=== PATIENT | female | born 1965 | race Caucasian/White ===

== ENCOUNTER → 2017-01-19 | Outpatient (CLI) | payer OTHER ==
[~2017-01-19] MED LIST: ESTR3TA PO; FURO20TA2 PO; HYDR25TAB PO; NAPR250T4 PO
[2017-01-19 11:14] LABS: MEAN CORPUSCULAR HEMOGLOBIN 27.9 pg (27.0-33.0); MEAN CORPUSCULAR HGB CONC 31.9 g/dl (32.0-36.5); MEAN CORPUSCULAR VOLUME 87.4 fl (80.0-96.0); PLATELET COUNT, AUTOMATED 406 10^3/uL (150-450); RED CELL DISTRIBUTION WIDTH 13.2 % (11.5-14.5); WHITE BLOOD COUNT 9.3 10^3/uL (4.0-10.0)
--- NOTE | 2017-01-19 11:22 | REP ---
Chest two views HISTORY: Arthritis Comparison: None The lungs are clear. The heart is normal in size. The pulmonary vasculature is normal in appearance. The bony structure is intact. IMPRESSION: No acute disease. Signed by Blayne Chi MD 01/19/2017 11:14 A
[2017-01-19 11:24] LABS: INR 1.12
[2017-01-19 11:38] LABS: ALBUMIN 3.7 GM/DL (3.2-5.2); ALBUMIN/GLOBULIN RATIO 1.06 (1.00-1.93); ALKALINE PHOSPHATASE 80 U/L (45-117); ALT/SGPT 16 U/L (12-78); ANION GAP 8 MEQ/L (8-16); AST/SGOT 8 U/L (7-37); BILIRUBIN,TOTAL 0.3 MG/DL (0.2-1.0); BLOOD UREA NITROGEN 20 MG/DL (7-18); CALCIUM LEVEL 9.4 MG/DL (8.5-10.1); CARBON DIOXIDE LEVEL 27 MEQ/L (21-32); CHLORIDE LEVEL 106 MEQ/L (98-107); CREATININE FOR GFR 0.61 MG/DL (0.55-1.02); GLOMERULAR FILTRATION RATE > 60.0 (>51); GLUCOSE, FASTING 90 MG/DL (70-105); POTASSIUM SERUM 4.4 MEQ/L (3.5-5.1); SODIUM LEVEL 141 MEQ/L (136-145); TOTAL PROTEIN 7.2 GM/DL (6.4-8.2)
[2017-01-19 12:08] LABS: ERYTHROCYTE SEDIMENTATION RATE 58 mm/hr (0-30)
--- NOTE | 2017-01-19 14:25 | ECGEPIP ---
Stationary ECG Study [facility] Test Date: 2017-01-19 Pat Name: ISABEL ELMORE Department: Room: - Gender: F Energy Technician: NEIL : 1965 Requested By: Robert Raymond Order Number: [id number] Reading MD: Shandra Walsh Measurements Intervals Powell Rate: 54 P: 8 UT: 149 QRS: 20 QRSD: 93 T: 18 QT: 419 QTc: 399 Interpretive Statements SINUS BRADYCARDIA WITH SINUS ARRHYTHMIA RATE SLOWER IMPROVED T WAVE ABN NEW ST ELEV SUSPECT EARLY REPOLAR CHANGES C/W 02/12/16 Electronically Signed On 01-19-2017 14:25:36 EST by Shandra Walsh
== END ==
LOC: M ADMPAT 09:34
PROVIDERS: ATTEND Orthopaedic Surgery
DX: M17.11 Unilateral primary osteoarthritis, right knee (principal)

== ENCOUNTER 2017-02-02 05:41 | Inpatient (IN) | payer OTHER ==
[2017-01-19 09:48] VITALS: BP 132/84
--- NOTE | 2017-01-30 21:06 | HPE ---
DATE OF PLANNED ADMISSION: 02/02/2017 ATTENDING PHYSICIAN: Robert Raymond MD CHIEF COMPLAINT: Left knee osteoarthritis. HISTORY OF PRESENT ILLNESS: This is a pleasant 51-year-old female with progressively worsening left knee pain and stiffness. She has failed to improve with conservative treatment. She has elected for surgery for her continued symptoms. She has pain with weightbearing activities and her activities of daily living. X-rays of her knee are notable for advanced osteoarthritis of the left knee joint. She has consented for a left total knee arthroplasty by Dr. Robert Raymond. Medical optimization was performed by Dr. Orozco. ALLERGIES: None. CURRENT MEDICATIONS: Naproxen, hydroxyzine, and hydrochlorothiazide. PAST MEDICAL HISTORY: None. PAST SURGICAL HISTORY: Cholecystectomy, hysterectomy, left breast biopsy, left and right knee arthroscopies. SOCIAL HISTORY: The patient works at [employer]. Does not smoke, does not drink. FAMILY HISTORY: Noncontributory. REVIEW OF SYSTEMS: She denies chest pain, heart palpitations, cough, wheezing, difficulty breathing and shortness of breath. She denies nausea, vomiting, diarrhea or constipation. She denies recent upper respiratory infection or urinary tract infection symptoms. She does complain of persistent pain in the left knee with weightbearing activities. PHYSICAL EXAMINATION: General: She is well-nourished, well-developed, in no acute distress, alert female patient. She walks with a moderate limp favoring the left lower extremity. She is not using assistive devices. Vital signs: She is 68 inches tall, weighs 306 pounds with a temperature of 97.6, pulse is 68, respirations are 16, blood pressure 140/100. Neck was supple without adenopathy or jugular venous distension. There were no carotid bruits appreciated upon auscultation. Lungs were clear to auscultation without rales or wheeze throughout. Heart: Regular rate and rhythm. Abdomen: Bowel sounds were present. Extremities: Examination of the knee revealed intact skin. She had decreased range of motion secondary to pain and stiffness. The limb was neurovascularly intact. LABORATORY DATA: EKG showed sinus bradycardia with sinus arrhythmia. Chest x-ray shows no acute cardiopulmonary disease processes. UA showed 5 white blood cells, otherwise within normal limits with a specific gravity of 1.031. Urine culture showed no growth. Nasal and sinus cultures showed normal tee. Glucose 90, BUN 20, creatinine 0.61, sodium 141, potassium 4.4. Protime 14.6, INR 1.12. CBC showed hemoglobin of 11.5 and mean corpuscular hemoglobin concentration of 31.9, otherwise within normal limits. Sedimentation rate was 58. IMPRESSION: Symptomatic osteoarthritis of the left knee joint. PLAN: Consented for a left total knee arthroplasty by Dr. Robert Raymond.
[2017-02-02] VITALS (8 sets, daily range): BP systolic 112–136; BP diastolic 60–76
[~2017-02-02] VITALS: Ht 170.2 cm; Wt 135.3 kg
[2017-02-02] MEDS ORDERED: LR 1,000 ML IV SCH ×3 (06:00→09:30)
[2017-02-02] MEDS ORDERED: MIDAZOLAM INJ 2 MG/2 ML VIAL (J2250) As Ordered ONE ×2 (06:55→07:05)
[2017-02-02] MEDS ORDERED: fentaNYL 100 MCG/2 ML INJECTION (J3010) As Ordered ONE ×2 (06:55→07:05)
[2017-02-02] MEDS ORDERED: PROPOFOL 200 MG/20 ML VIAL As Ordered ONE ×2 (07:05→08:29)
[2017-02-02] MEDS ORDERED: LIDOCAINE 2% INJ 100 MG/5 ML SDV (FOR ANES.) As Ordered ONE (07:05)
[2017-02-02] MEDS ORDERED: ceFAZolin 1GM INJ (J0690 PER 500MG) As Ordered ONE (07:14)
[2017-02-02] MEDS ORDERED: BUPIVACAINE LIPOSOME/PF 1.3% 20 ML VIAL (13.3MG/ML)(EXPAREL) As Ordered ONE (07:21)
[2017-02-02] MEDS ORDERED: dexameTHASONE 10 MG/1 ML VIAL PRES.FREE (J1100) ONE (07:44)
[2017-02-02] MEDS ORDERED: ROPIvacaine 0.5% 30 ML INJECTION (J2795 PER 1MG) ONE (07:44)
[2017-02-02] MEDS ORDERED: LIDOCAINE 1% MDV 20ML VIAL ONE (07:44)
--- NOTE | 2017-02-02 07:53 | HPE ---
DATE: 02/02/2017 Patient seen and examined. She wished to go ahead with a right total knee arthroplasty. She understands the nature of this, the risks of bleeding, infection, damage to nerves, vessels, persistent pain, wear loosening, blood clots, medical problems, among others. She understands that with her morbid obesity. Her risks of complication are substantially higher including infection, deep venous thrombosis (DVT), stiffness, medical problems, among others.
[2017-02-02] MEDS ORDERED: MIDAZOLAM INJ 2 MG/2 ML VIAL (J2250) IV ONE (08:00)
[2017-02-02] MEDS ORDERED: fentaNYL 100 MCG/2 ML INJECTION (J3010) IV ONE (08:00)
[2017-02-02] MEDS ORDERED: TRANEXAMIC ACID 100 MG/ML 10ML VIAL As Ordered ONE (08:03)
[2017-02-02] MEDS ORDERED: EPINEPHrine INJ 1 MG/ML 1ML AMP As Ordered ONE (08:03)
[2017-02-02] MEDS ORDERED: diphenhydrAMINE INJ 50MG/ML VIAL (J1200) IV PRN (09:00)
[2017-02-02] MEDS ORDERED: ONDANSETRON 4MG/2ML VIAL (J2405) IV PRN ×3 (09:00→09:45)
[2017-02-02] MEDS ORDERED: MORPHINE 1MG/ML IN 0.9% NACL 100ML IV BAG IV PRN (09:00)
[2017-02-02] MEDS ORDERED: EPIDURAL/PCA KEYS XX PRN (09:00)
[2017-02-02] MEDS ORDERED: NALOXONE INJ 0.4 MG/1 ML VIAL (J2310) IV PRN (09:00)
[2017-02-02] MEDS ORDERED: NALBUPHINE HCL 10 MG/ML AMP (J2300) IV PRN (09:00)
[2017-02-02] MEDS ORDERED: MORPHINE 1MG/ML IN 0.9% NACL 100ML IV BAG As Ordered ONE (09:06)
[2017-02-02] MEDS: fentaNYL 100 MCG/2 ML INJECTION (J3010) IV PRN ×3 (09:20→09:45)
[2017-02-02] MEDS ORDERED: HYDROmorphone HCL 1 MG/ML SYRINGE (J1170) IV PRN (09:30)
[2017-02-02] MEDS ORDERED: PERCOCET 5MG/325MG TAB PO PRN (09:30)
[2017-02-02] MEDS ORDERED: ACETAMINOPHEN TAB 650MG DOSE (2X325MG) PO PRN (10:00)
[2017-02-02] MEDS: LR 1,000 ML IV SCH ×2 (10:00→23:20)
[2017-02-02] MEDS ORDERED: FLEET ENEMA PR PRN (10:00)
--- NOTE | 2017-02-02 16:35 | RO ---
DATE OF PROCEDURE: 02/02/2017 PREOPERATIVE DIAGNOSIS: Right knee osteoarthritis. POSTOPERATIVE DIAGNOSIS: Right knee osteoarthritis. PROCEDURE: Right total knee arthroplasty using a PFC rotating platform posterior stabilized size 4 narrow femur, size 3 tibia, 10 polyethylene and a 35 patellar button. SURGEON: Dr. Robert Raymond DIRECTORY CARRIER: WILLIAMS Coates ANESTHESIA: Spinal. ESTIMATED BLOOD LOSS: Less than 50. COMPLICATIONS: None. INDICATIONS: This is a 51-year-old, morbidly obese woman with severe arthritis. Her body mass index (BMI) is well over 40. She had failed conservative management and wished to go ahead with surgical treatment. She understood the nature of the procedure, the risks of bleeding, infection, damage to nerves, vessels, persistent pain, wear loosening, blood clots, medical problems, , among others. A preoperative clearance was obtained. DESCRIPTION OF PROCEDURE: The patient was taken to the operating room and placed in supine position after spinal anesthesia was induced. Her right knee was prepped and draped in the usual sterile fashion. She had a slight flexion contracture noted. Time-out was performed. I then created a longitudinal incision over the antrum aspect of the knee and sharp dissection was carried down through subcutaneous tissue. Controlled hemostasis with a cautery. Then, did a medial parapatellar arthrotomy, everted the patella, flexed the knee up. Used a canal initiating reamer on the femoral side, followed by the intramedullary guide set at 5 and 10. This was pinned in place by the commercial real estate assistant. I dialed back 2 more mm of cut and a distal femoral cut was made protecting soft tissues. I sized the femur to be a 4. It looked like a 4 narrow. Pin holes were placed in the end of the femur with the external rotation guide and this 4-in-1 cutting block was secured. Remaining four cuts were made. I then directed our attention to the tibia and the tibial alignment guide was placed in the appropriate amount of valgus and posterior slope. This was pinned in place and the appropriate amount of bone was removed, approximately 10 from the high side. The zero degree cutting block was used with anticipation of using a posterior stabilized knee. I then prepared the box cut. The size 4 box cutting guide was placed. The remaining three cuts were made and the tibial tray was placed. Size 3 fit appropriately. This was pinned in place, drilled, broached, etc.. The trial components were placed. I had used a spacer block and the size 10 seemed to be appropriate in flexion/extension. I also removed osteophytes from the posterior aspect of the femur and some soft tissue from either side of the knee. Controlled hemostasis with a cautery. The trial components were then inserted, and I put the knee through a range of motion. Excellent alignment and stability were noted. I then freehand cut the patella removing about 7 mm of bone. Sized to be a 35. This was drilled. I then removed the trial components, irrigated copiously. The commercial real estate assistant prepared the bone cement in the modern technique. The bony surfaces were dried. I cemented on the tibial surface, cemented on the femoral component. Polyethylene was inserted and the knee was brought out in extension. I had removed any excess bone cement. The patella was then cemented in place. Removed excess bone cement. The patella tracked nicely and I of course had irrigated the bony surfaces and dried them carefully. Irrigation was then performed. I had used some Exparel prior to this in the posterior capsule and around the periosteum, and then also used the remainder of the Exparel in the deep tissues now. Tranexamic acid (TXA) solution was placed in the knee and this allowed to sit. I then finally irrigated the deep layer, closed the deep layer with #1 Vicryl suture in interrupted fashion, followed by a running Stratafix suture in each direction with the commercial real estate assistant's help. We irrigated, closed subcu with #2-0 Vicryl, the skin with annabel. Sterile dressing was applied. Tourniquet was deflated and she was taken to recovery in stable condition. There were no known complications. The plan will be routine post-op. The PA was instrumental in holding retractors, providing exposure in this difficult knee, and also in making the distal femoral cuts, portion of the wound closure. This is coded as an unusually difficult procedure because of her morbid obesity. This made the procedure much more difficult in terms of exposure, in terms of making the cuts and just handling the leg and final wound closure. RICCO
[2017-02-02] MEDS ORDERED: WARFARIN SOD 5 MG TAB PO ONE (17:00)
[2017-02-03 03:15] VITALS: BP 128/69
[2017-02-03] MEDS ORDERED: PERCOCET 5MG/325MG TAB PO PRN (06:30)
[2017-02-03 06:56] LABS: MEAN CORPUSCULAR HEMOGLOBIN 27.9 pg (27.0-33.0); MEAN CORPUSCULAR HGB CONC 31.9 g/dl (32.0-36.5); MEAN CORPUSCULAR VOLUME 87.3 fl (80.0-96.0); PLATELET COUNT, AUTOMATED 313 10^3/uL (150-450); RED CELL DISTRIBUTION WIDTH 13.3 % (11.5-14.5)
[2017-02-03 07:07] LABS: INR 1.22
[2017-02-03 08:15] VITALS: BP 129/66
[2017-02-03] MEDS ORDERED: COUM2.5T17 PO (08:31)
[2017-02-03] MEDS ORDERED: PERC5TAB12 PO (08:31)
--- NOTE | 2017-02-03 08:35 | IPNPDOC ---
Subjective Date Seen The patient was seen on 02/02/17. Subjective Chief Complaint/HPI The patient is a 51-year-old female admitted with a reason for visit of Right Knee Arthritis. Events since last encounter Pt is post op and feeling pretty good. She has good pain control and is currently denying nausea. General: Denies: Fatigue ENT: Denies: Head Aches Pulmonary: Denies: Dyspnea, Cough Cardiovascular: Denies: Chest Pain, Palpitations Gastrointestinal: Denies: Nausea, Vomiting Psych: Reports: Mood Normal Objective Physical Examination General Exam: Positive: Alert, No Acute Distress ENT Exam: Positive: Mucous membr. moist/pink Chest Exam: Positive: Clear to auscultation, Normal air movement Heart Exam: Positive: Rate Normal, Normal S1, Normal S2 Abdomen Exam: Positive: Normal bowel sounds, Soft, Negative: Tenderness Extremity Exam: Negative: Edema Assessment /Plan Problems (1) Hypertension Status: Chronic Response to Treatment: Stable, Controlled Problem Specific Plan: Monitor Clinically Problem Text: Pt on HCTZ 25 mg daily as outpt, hold currently, monitor pressures. (2) Status post revision of total replacement of right knee Status: Acute Response to Treatment: Stable Discussed With: Patient Problem Specific Plan: Monitor Clinically Problem Text: Mgmt per ortho to include, PT, pain mgmt, bowel care, anticoagulation and d/c planning. Pt medically stable, call [facility] if further assistance needed. Plan/VTE VTE Prophylaxis Ordered?: Yes VS, I&O, 24H, Fishbone Vital Signs/I&O Vital Signs Date Time Temp Pulse Resp B/P (MAP) Pulse Ox O2 Delivery O2 Flow Rate FiO2 02/03/17 03:15 98.1 80 18 128/69 (88) 100 Room Air 02/02/17 11:00 2.0 Laboratory Data 24H LABS Laboratory Tests 2 02/03/17 06:25: Nucleated Red Blood Cells % (auto) 0.0, Prothrombin Time 15.6H, Prothromb Time International Ratio 1.22 CBC/BMP Laboratory Tests 02/03/17 06:25 Red Blood Count 3.77 L, Mean Corpuscular Volume 87.3, Mean Corpuscular Hemoglobin 27.9, Mean Corpuscular Hemoglobin Concent 31.9 L, Red Cell Distribution Width 13.3 FAUSTINO RUBIO PA-C Feb 03, 2017 08:35
--- NOTE | 2017-02-03 08:37 | IPNPDOC ---
Subjective Date Seen The patient was seen on 02/03/17. Subjective Chief Complaint/HPI The patient is a 51-year-old female admitted with a reason for visit of Right Knee Arthritis. Events since last encounter Pt did well overnight. She has no new concerns this morning. Pain is well controlled. General: Reports: Fatigue ENT: Denies: Head Aches Pulmonary: Denies: Dyspnea, Cough Cardiovascular: Denies: Chest Pain, Palpitations Gastrointestinal: Denies: Nausea, Vomiting, Diarrhea Neurological: Denies: Weakness Psych: Reports: Mood Normal Objective Physical Examination General Exam: Positive: Alert, No Acute Distress ENT Exam: Positive: Mucous membr. moist/pink Chest Exam: Positive: Clear to auscultation, Normal air movement Heart Exam: Positive: Rate Normal, Normal S1, Normal S2 Abdomen Exam: Positive: Normal bowel sounds, Soft, Negative: Tenderness Extremity Exam: Negative: Edema Assessment /Plan Problems (1) Hypertension Status: Chronic Response to Treatment: Stable, Controlled Problem Specific Plan: Monitor Clinically Problem Text: 02/03 - pressures remain stable, monitor. 02/02 Pt on HCTZ 25 mg daily as outpt, hold currently, monitor pressures. (2) Status post revision of total replacement of right knee Status: Acute Response to Treatment: Stable Discussed With: Patient Problem Specific Plan: Monitor Clinically Problem Text: Mgmt per ortho to include, PT, pain mgmt, bowel care, anticoagulation and d/c planning. Pt medically stable, call [facility] if further assistance needed. Plan/VTE VTE Prophylaxis Ordered?: Yes VS, I&O, 24H, Fishbone Vital Signs/I&O Vital Signs Date Time Temp Pulse Resp B/P (MAP) Pulse Ox O2 Delivery O2 Flow Rate FiO2 02/03/17 03:15 98.1 80 18 128/69 (88) 100 Room Air 02/02/17 11:00 2.0 Laboratory Data 24H LABS Laboratory Tests 2 02/03/17 06:25: Nucleated Red Blood Cells % (auto) 0.0, Prothrombin Time 15.6H, Prothromb Time International Ratio 1.22 CBC/BMP Laboratory Tests 02/03/17 06:25 Red Blood Count 3.77 L, Mean Corpuscular Volume 87.3, Mean Corpuscular Hemoglobin 27.9, Mean Corpuscular Hemoglobin Concent 31.9 L, Red Cell Distribution Width 13.3 FAUSTINO RUBIO PA-C Feb 03, 2017 08:37
[2017-02-03] MEDS: ONDANSETRON 4 MG TAB (S0181) PO PRN ×2 (09:14→21:51)
[2017-02-03] MEDS: MOM 30ML SUSPENSION UDC PO SCH (09:14)
[2017-02-03] MEDS: MIRALAX *UNIT DOSE* 17GM PACKET PO SCH (09:14)
[2017-02-03] MEDS: SENOKOT S TAB PO SCH ×2 (09:15→21:51)
[2017-02-03] MEDS ORDERED: diphenhydrAMINE 25 MG CAP PO PRN (09:30)
[2017-02-03] MEDS: PERCOCET 5MG/325MG TAB PO PRN ×3 (10:53→21:51)
--- NOTE | 2017-02-03 11:07 | REP ---
Right knee series: Two views. History: Postop evaluation. Check placement. No comparison views. Findings: AP and lateral views of the right knee demonstrate that the patient is status post right knee arthroplasty. Anterior skin annabel are seen. Soft tissue swelling and emphysema is noted. Arthroplasty components appear well aligned with their [place] bones and with respect to each other. Impression: Status post right knee arthroplasty. Signed by Salbador Rolle MD 02/03/2017 03:58 P
[2017-02-03 14:00] VITALS: BP 140/71
[2017-02-03] MEDS ORDERED: WARFARIN SOD 5 MG TAB PO ONE (17:00)
[2017-02-03] MEDS ORDERED: WARFARIN SOD 7.5 MG TAB PO ONE (17:00)
[2017-02-03 22:00] VITALS: BP 188/88
[2017-02-04] MEDS: PERCOCET 5MG/325MG TAB PO PRN ×2 (04:36→10:41)
[2017-02-04 06:50] LABS: MEAN CORPUSCULAR HEMOGLOBIN 28.3 pg (27.0-33.0); MEAN CORPUSCULAR HGB CONC 32.2 g/dl (32.0-36.5); MEAN CORPUSCULAR VOLUME 87.7 fl (80.0-96.0); PLATELET COUNT, AUTOMATED 288 10^3/uL (150-450); RED CELL DISTRIBUTION WIDTH 13.4 % (11.5-14.5)
[2017-02-04 06:58] LABS: INR 1.5
[2017-02-04] MEDS: MIRALAX *UNIT DOSE* 17GM PACKET PO SCH (09:08)
[2017-02-04] MEDS: SENOKOT S TAB PO SCH (09:08)
[2017-02-04] MEDS: MOM 30ML SUSPENSION UDC PO SCH (09:08)
--- NOTE | 2017-02-04 11:20 | IPNPDOC ---
Subjective Date Seen The patient was seen on 02/04/17. Subjective Chief Complaint/HPI The patient is a 51-year-old female admitted with a reason for visit of Right Knee Arthritis. Constitutional: Denies: Chills, Fever, Night Sweats Pulmonary: Denies: Dyspnea, Cough Cardiovascular: Denies: Chest Pain, Palpitations, Orthopnea, Paroxysmal Noc. Dyspnea, Lt Headedness Gastrointestinal: Denies: Nausea, Vomiting, Abdominal Pain, Diarrhea, Constipation Objective Physical Examination General Exam: Positive: Alert, No Acute Distress ENT Exam: Positive: Mucous membr. moist/pink Chest Exam: Positive: Clear to auscultation, Normal air movement Heart Exam: Positive: Rate Normal, Normal S1, Normal S2 Abdomen Exam: Positive: Normal bowel sounds, Soft, Negative: Tenderness Extremity Exam: Negative: Edema Assessment /Plan Problems (1) Hypertension Status: Chronic Response to Treatment: Stable, Controlled Problem Specific Plan: Monitor Clinically Problem Text: 02/04/17: elevated BP 180s. Resume HCTZ. Monitor. 02/03 - pressures remain stable, monitor. 02/02 Pt on HCTZ 25 mg daily as outpt, hold currently, monitor pressures. (2) Status post revision of total replacement of right knee Status: Acute Response to Treatment: Stable Discussed With: Patient Problem Specific Plan: Monitor Clinically Problem Text: Mgmt per ortho to include, PT, pain mgmt, bowel care, anticoagulation and d/c planning. Pt medically stable, call [facility] if further assistance needed. Plan/VTE VTE Prophylaxis Ordered?: Yes VS, I&O, 24H, Fishbone Vital Signs/I&O Vital Signs Date Time Temp Pulse Resp B/P (MAP) Pulse Ox O2 Delivery O2 Flow Rate FiO2 02/04/17 10:41 18 02/04/17 05:06 Nasal Cannula 2.0 02/03/17 22:00 98.3 76 188/88 (121) 95 I&O- Last 24 Hours up to 6 AM 02/05/17 06:00 Intake Total 0 ml Output Total 0 ml Balance 0 ml Laboratory Data 24H LABS Laboratory Tests 2 02/04/17 06:20: Nucleated Red Blood Cells % (auto) 0.0, Prothrombin Time 18.5H, Prothromb Time International Ratio 1.50 CBC/BMP Laboratory Tests 02/04/17 06:20 Red Blood Count 3.50 L, Mean Corpuscular Volume 87.7, Mean Corpuscular Hemoglobin 28.3, Mean Corpuscular Hemoglobin Concent 32.2, Red Cell Distribution Width 13.4 Angie Borrego [facility] Feb 04, 2017 11:20
[2017-02-04] MEDS ORDERED: hydroCHLOROthiazide 25 MG TAB PO ONE (11:30)
== END 2017-02-04 13:25 | disposition home health service (06) | DRG 302 ==
LOC: M OR 05:41 → M MS5PR 10:30
PROVIDERS: ADMIT Orthopaedic Surgery; ATTEND Orthopaedic Surgery
PROC: 0SRD0J9 Replacement of Left Knee Joint with Synthetic Substitute, Cemented, Open Approach (ICD-10-PCS; principal; 2017-02-02 07:30)
DX: M17.0 Bilateral primary osteoarthritis of knee (principal); Z68.42 Body mass index [BMI] 45.0-49.9, adult; I10 Essential (primary) hypertension; E66.01 Morbid (severe) obesity due to excess calories; Z79.899 Other long term (current) drug therapy

== ENCOUNTER → 2017-02-09 | Outpatient (REF) | payer OTHER ==
[~2017-02-09] MED LIST changes: +COUM2.5T17 PO; +PERC5TAB12 PO
[2017-02-09 15:56] LABS: INR 1.81
== END ==
LOC: M SHH 15:27
PROVIDERS: ATTEND Nurse Practitioner Family
DX: Z79.01 Long term (current) use of anticoagulants (principal)

== ENCOUNTER → 2017-02-12 | Outpatient (REF) | payer OTHER ==
[2017-02-12 12:57] LABS: INR 2.28
== END ==
LOC: M SHH 12:33
PROVIDERS: ATTEND Nurse Practitioner Family
DX: Z79.01 Long term (current) use of anticoagulants (principal)

== ENCOUNTER → 2017-02-17 | Outpatient (REF) | payer OTHER ==
[2017-02-17 11:38] LABS: INR 1.77
== END ==
LOC: M LABDRAW1 10:08
PROVIDERS: ATTEND Nurse Practitioner Family
DX: Z79.01 Long term (current) use of anticoagulants (principal)

== ENCOUNTER → 2017-02-19 | Outpatient (REF) | payer OTHER ==
[2017-02-19 14:34] LABS: INR 1.69
== END ==
LOC: M SHH 14:14
DX: Z51.81 Encounter for therapeutic drug level monitoring (principal); Z79.01 Long term (current) use of anticoagulants

== ENCOUNTER → 2017-02-24 | Outpatient (REF) | payer OTHER ==
[2017-02-24 12:27] LABS: INR 1.72; PROTHROMBIN TIME 20.7 SECONDS (12.4-14.5)
== END ==
LOC: M SHH 11:46
DX: Z79.01 Long term (current) use of anticoagulants (principal)

== ENCOUNTER → 2017-02-26 | Outpatient (REF) | payer OTHER ==
[2017-02-26 11:09] LABS: PROTHROMBIN TIME 21.4 SECONDS (12.4-14.5)
== END ==
LOC: M SHH 10:42
DX: Z79.01 Long term (current) use of anticoagulants (principal)

== ENCOUNTER → 2017-03-02 | Outpatient (REF) | payer OTHER ==
[2017-03-02 14:17] LABS: INR 1.78; PROTHROMBIN TIME 21.3 SECONDS (12.4-14.5)
== END ==
LOC: M SHH 13:38
DX: Z79.01 Long term (current) use of anticoagulants (principal)

== ENCOUNTER 2017-03-23 11:57 | Outpatient (RCR) | payer MEDICAID | END 2017-03-25 | LOC: M PT 11:57 | DX: Z96.651 Presence of right artificial knee joint (principal); M79.604 Pain in right leg | CPT/HCPCS: 97010 ==

== ENCOUNTER 2017-03-30 11:47 | Outpatient (RCR) | payer MEDICAID | END 2017-04-22 | LOC: M PT 11:47 | DX: Z51.89 Encounter for other specified aftercare (principal); Z96.651 Presence of right artificial knee joint; M79.604 Pain in right leg | CPT/HCPCS: 97110 ==

== ENCOUNTER → 2017-05-14 | Outpatient (CLI) | payer OTHER ==
[2017-05-14 11:37] LABS: APPEARANCE, URINE MANUAL HAZY (CLEAR); BILIRUBIN, URINE MANUAL NEGATIVE (NEGATIVE); BLOOD URINE MANUAL NEGATIVE (NEGATIVE); COLOR, URINE MANUAL YELLOW (YELLOW); GLUCOSE, URINE (UA) MANUAL NEGATIVE (NEGATIVE); KETONE, URINE MANUAL NEGATIVE (NEGATIVE); LEUKOCYTE ESTERASE, URINE MAN TRACE (NEGATIVE); MICROSCOPIC INDICATED? MAN YES (NO); NITRITE, URINE MANUAL NEGATIVE (NEGATIVE); PROTEIN, URINE MANUAL 2+ mg/dL (NEGATIVE); UROBILINOGEN, URINE MANUAL NORMAL (NORMAL)
[2017-05-14 11:42] LABS: HEMATOCRIT 35.4 % (36.0-47.0); HEMOGLOBIN 11.6 g/dl (12.0-16.0); MEAN CORPUSCULAR HEMOGLOBIN 28.4 pg (27.0-33.0); MEAN CORPUSCULAR HGB CONC 32.8 g/dl (32.0-36.5); MEAN CORPUSCULAR VOLUME 86.8 fl (80.0-96.0); PLATELET COUNT, AUTOMATED 356 10^3/uL (150-450); RED BLOOD COUNT 4.08 10^6/uL (4.00-5.40); RED CELL DISTRIBUTION WIDTH 13.7 % (11.5-14.5); WHITE BLOOD COUNT 9.8 10^3/uL (4.0-10.0)
[2017-05-14 11:53] LABS: INR 1.06; PROTHROMBIN TIME 13.9 SECONDS (12.4-14.5)
[2017-05-14 12:07] LABS: AMORPHOUS SEDIMENT, URINE SMALL AMOUNT (NEGATIVE); BACTERIA, URINE SMALL AMOUNT; MICROSCOPIC EXAM PERFORMED; MUCUS, URINE SMALL AMOUNT (NEGATIVE); RBC, URINE 0-1 /hpf (0-3); SQUAMOUS EPITHELIAL CELL URINE MOD AMOUNT /hpf (SMALL AMT)
[2017-05-14 12:12] LABS: ERYTHROCYTE SEDIMENTATION RATE 52 mm/hr (0-30)
[2017-05-14 12:26] LABS: ALBUMIN 3.6 GM/DL (3.2-5.2); ALBUMIN/GLOBULIN RATIO 0.84 (1.00-1.93); ALKALINE PHOSPHATASE 95 U/L (45-117); ALT/SGPT 18 U/L (12-78); ANION GAP 9 MEQ/L (8-16); AST/SGOT 14 U/L (7-37); BILIRUBIN,TOTAL 0.3 MG/DL (0.2-1.0); BLOOD UREA NITROGEN 18 MG/DL (7-18); CALCIUM LEVEL 8.9 MG/DL (8.5-10.1); CARBON DIOXIDE LEVEL 25 MEQ/L (21-32); CHLORIDE LEVEL 107 MEQ/L (98-107); CREATININE FOR GFR 0.65 MG/DL (0.55-1.30); GLOMERULAR FILTRATION RATE > 60.0 (>51); GLUCOSE, FASTING 98 MG/DL (70-100); POTASSIUM SERUM 4.2 MEQ/L (3.5-5.1); SODIUM LEVEL 141 MEQ/L (136-145); TOTAL PROTEIN 7.9 GM/DL (6.4-8.2)
[2017-05-14 12:28] LABS: HYALINE CAST, URINE NONE SEEN /lpf (0-1)
== END ==
LOC: M ADMPAT 09:27
DX: Z01.818 Encounter for other preprocedural examination (principal)
CPT/HCPCS: 80053

== ENCOUNTER → 2017-05-20 | Outpatient (REF) | payer OTHER, MEDICAID ==
[2017-05-20 15:39] LABS: RETIC HEMOGLOBIN EQUIVALENT 33.1 pg (24-36); RETICULOCYTE # 87.4 10^9/L (17-77); RETICULOCYTE % 2.1 % (0.5-1.5)
[2017-05-20 15:55] LABS: FERRITIN 162 NG/ML (8-252); IRON (FE) 53 UG/DL (50-170); PERCENT SATURATION 20.2 % (13.2-45.0); TOTAL IRON BINDING CAPACITY 262 UG/DL (250-450)
[2017-05-22 08:06] LABS: TRANSFERRIN 203 mg/dL (200-370)
== END ==
LOC: M SFHCPLAZ 12:31
DX: D64.9 Anemia, unspecified (principal)

== ENCOUNTER → 2017-06-04 | Outpatient (CLI) | payer OTHER ==
[2017-06-04 07:17] LABS: INR 1.68; PROTHROMBIN TIME 20.3 SECONDS (12.4-14.5)
== END ==
LOC: M LAB 06:24
DX: Z51.81 Encounter for therapeutic drug level monitoring (principal); Z79.01 Long term (current) use of anticoagulants
CPT/HCPCS: 85610

== ENCOUNTER → 2017-06-08 | Outpatient (REF) | payer OTHER ==
[2017-06-08 13:24] LABS: INR 1.82; PROTHROMBIN TIME 21.7 SECONDS (12.4-14.5)
== END ==
LOC: M SHH 12:39
DX: Z51.81 Encounter for therapeutic drug level monitoring (principal); Z79.01 Long term (current) use of anticoagulants
CPT/HCPCS: 85610

== ENCOUNTER → 2017-06-11 | Outpatient (REF) | payer OTHER ==
[2017-06-11 13:15] LABS: INR 1.75
== END ==
LOC: M LABDRAW1 12:52
DX: Z79.01 Long term (current) use of anticoagulants (principal)

== ENCOUNTER → 2017-06-15 | Outpatient (REF) | payer OTHER ==
[2017-06-15 11:58] LABS: INR 2.04; PROTHROMBIN TIME 23.7 SECONDS (12.4-14.5)
== END ==
LOC: M SHH 11:34
DX: Z79.01 Long term (current) use of anticoagulants (principal)
CPT/HCPCS: 85610

== ENCOUNTER → 2017-06-18 | Outpatient (REF) | payer MEDICAID, OTHER, SELFPAY ==
[2017-06-18 14:13] LABS: INR 2.02; PROTHROMBIN TIME 23.6 SECONDS (12.4-14.5)
== END ==
LOC: M SHH 13:40
DX: Z51.81 Encounter for therapeutic drug level monitoring (principal); Z79.01 Long term (current) use of anticoagulants
CPT/HCPCS: 85610

== ENCOUNTER → 2017-06-22 | Outpatient (REF) | payer OTHER ==
[2017-06-22 11:51] LABS: PROTHROMBIN TIME 22.4 SECONDS (12.4-14.5)
== END ==
LOC: M LAB REF 11:14
DX: Z79.01 Long term (current) use of anticoagulants (principal)

== ENCOUNTER → 2017-06-25 | Outpatient (REF) | payer OTHER, SELFPAY ==
[2017-06-25 15:36] LABS: INR 1.69; PROTHROMBIN TIME 20.4 SECONDS (12.4-14.5)
== END ==
LOC: M SHH 15:17
DX: Z79.01 Long term (current) use of anticoagulants (principal)

== ENCOUNTER 2017-07-27 14:08 | Outpatient (RCR) | payer MEDICAID | END 2017-08-22 | LOC: M PT 07-29 09:55 | DX: Z51.89 Encounter for other specified aftercare (principal); Z96.653 Presence of artificial knee joint, bilateral | CPT/HCPCS: 97110 ==

== ENCOUNTER → 2019-03-04 | Outpatient (CLI) | payer MEDICAID ==
[~2019-03-04] MED LIST changes: +IBUP80TA PO; +TYLE650T35 PO
--- NOTE | 2019-03-04 13:44 | REP ---
INDICATION: History of pituitary adenoma. PROCEDURE: MR brain and pituitary obtained with contrast. Routine MRI brain, includes T1, T2, diffusion and FLAIR images. Imaging of the pituitary with postcontrast and dynamic imaging. COMPARISON STUDIES: No prior similar studies FINDINGS: MR brain: No evidence of restricted diffusion to suggest acute infarction. No gradient-echo susceptibility to suggest hemorrhage. The ventricles and extra-axial CSF spaces are within normal limits. No mass effect or midline shift. No abnormal fluid collections. On the FLAIR images, there are a few scattered nonspecific white matter changes. MRI of the pituitary: There is a partially empty sella turcica. Pituitary stalk is at midline. The contents the sella slightly greater on the right. No evidence of upward extension and no definite evidence of cavernous sinus invasion. IMPRESSION : MRI brain: No acute findings. Normal examination. MRI pituitary: Partially empty sella without evidence of mass lesion, no evidence of upward extension or cavernous sinus invasion. Pituitary stalk is at midline. Electronically Signed by Hakan Ceja MD 03/04/2019 01:36 P
== END ==
LOC: M PLARAD 09:54
PROVIDERS: ATTEND Family Medicine
DX: Z86.018 Personal history of other benign neoplasm (principal)

== ENCOUNTER → 2019-04-05 | Outpatient (CLI) | payer OTHER ==
[2019-04-05 12:22] LABS: HEMATOCRIT 39.3 % (36.0-47.0); HEMOGLOBIN 12.2 g/dl (12.0-15.5); MEAN CORPUSCULAR HEMOGLOBIN 28.1 pg (27.0-33.0); MEAN CORPUSCULAR VOLUME 90.6 fl (80.0-96.0); PLATELET COUNT, AUTOMATED 367 10^3/uL (150-450); RED BLOOD COUNT 4.34 10^6/uL (4.00-5.40); WHITE BLOOD COUNT 10.8 10^3/uL (4.0-10.0)
[2019-04-05 12:43] LABS: ALBUMIN 3.7 GM/DL (3.2-5.2); ALT/SGPT 18 U/L (12-78); BILIRUBIN,TOTAL 0.5 MG/DL (0.2-1.0); BLOOD UREA NITROGEN 15 MG/DL (7-18); CALCIUM LEVEL 9.4 MG/DL (8.5-10.1); CARBON DIOXIDE LEVEL 28 MEQ/L (21-32); CHLORIDE LEVEL 103 MEQ/L (98-107); CHOLESTEROL LEVEL 166 MG/DL (<200); CHOLESTEROL RISK RATIO 3.387 (<5); CREATININE FOR GFR 0.71 MG/DL (0.55-1.30); GLOMERULAR FILTRATION RATE > 60.0 (>51); GLUCOSE, FASTING 103 MG/DL (70-100); HDL CHOLESTEROL 49 MG/DL (>40); LDL CHOLESTEROL 88 MG/DL (<100); NON-HDL-C 117 MG/DL; POTASSIUM SERUM 4.5 MEQ/L (3.5-5.1); SODIUM LEVEL 138 MEQ/L (136-145); TOTAL PROTEIN 7.6 GM/DL (6.4-8.2); TRIGLYCERIDES LEVEL 147 MG/DL (<150)
[2019-04-05 13:05] LABS: PROLACTIN 21.9 NG/ML
== END ==
LOC: M WUC 09:09
PROVIDERS: ATTEND Family Medicine
DX: D64.9 Anemia, unspecified (principal); Z13.220 Encounter for screening for lipoid disorders; Z13.1 Encounter for screening for diabetes mellitus; Z86.018 Personal history of other benign neoplasm

== ENCOUNTER → 2019-04-14 | Outpatient (REF) | payer OTHER, MEDICAID | LOC: M LAB REF 13:49 | PROVIDERS: ATTEND Radiology Diagnostic Radiology | DX: N63.0 Unspecified lump in unspecified breast (principal) ==

== ENCOUNTER → 2019-05-05 | Outpatient (REF) | payer OTHER, MEDICAID | LOC: M SFHCPLAZ 18:28 | PROVIDERS: ATTEND Nurse Practitioner Adult Health | DX: R30.0 Dysuria (principal) ==

== ENCOUNTER → 2019-09-08 | Outpatient (CLI) | payer OTHER, MEDICAID ==
[~2019-09-08] MED LIST changes: +ACET650T61 PO; -TYLE650T35 PO
== END ==
LOC: M LABSMTC 11:36
PROVIDERS: ATTEND Anesthesiology
DX: Z01.818 Encounter for other preprocedural examination (principal); Z11.59 Encounter for screening for other viral diseases
CPT/HCPCS: C9803; U0003

== ENCOUNTER 2019-09-13 06:42 | Day surgery (SDC) | payer OTHER ==
[~2019-09-13] VITALS: Ht 170.2 cm; Wt 146.5 kg
[~2019-09-13 06:42] MED LIST changes: +NS 1,000 ML IV ONE
[2019-09-13] MEDS ORDERED: propofoL 200 MG/20 ML VIAL As Ordered ONE (08:34)
--- NOTE | 2019-09-13 08:46 | ROOR ---
Patient Name: Citlalli Parker Procedure Date: 09/13/2019 8:18 AM Date of : 1965 Age: 54 Room: [facility] Gender: Female Note Status: Finalized Procedure: Colonoscopy Indications: Screening in patient at increased risk: Family history of 1st-degree relative with colorectal cancer before age 60 years Providers: Yony Mark MD Referring MD: Luisa Orozco MD Requesting Provider: Medicines: Monitored Anesthesia Care Complications: No immediate complications. Procedure: Pre-Anesthesia Assessment: - Prior to the procedure, a History and Physical was performed, and patient medications and allergies were reviewed. The patient is competent. The risks and benefits of the procedure and the sedation options and risks were discussed with the patient. All questions were answered and informed consent was obtained. Patient identification and proposed procedure were verified by the physician, the nurse and the anesthesiologist in the procedure room. Mental Status Examination: alert and oriented. Airway Examination: normal oropharyngeal airway and neck mobility. Respiratory Examination: clear to auscultation. CV Examination: normal. Prophylactic Antibiotics: The patient does not require prophylactic antibiotics. Prior Anticoagulants: The patient has taken no previous anticoagulant or antiplatelet agents. ASA Grade Assessment: II - A patient with mild systemic disease. After reviewing the risks and benefits, the patient was deemed in satisfactory condition to undergo the procedure. The anesthesia plan was to use monitored anesthesia care (MAC). Immediately prior to administration of medications, the patient was re-assessed for adequacy to receive sedatives. The heart rate, respiratory rate, oxygen saturations, blood pressure, adequacy of pulmonary ventilation, and response to care were monitored throughout the procedure. The physical status of the patient was re-assessed after the procedure. The Colonoscope was introduced through the anus and advanced to the terminal ileum, with identification of the appendiceal orifice and IC valve. The colonoscopy was performed without difficulty. The patient tolerated the procedure well. The quality of the bowel preparation was good. The terminal ileum, ileocecal valve, appendiceal orifice, and rectum were photographed. Scope insertion time was 2 minutes. Scope withdrawal time was 9 minutes. The total duration of the procedure was 11 minutes. Findings: The perianal and digital rectal examinations were normal. The terminal ileum appeared normal. A 10 mm polyp was found in the ascending colon. The polyp was sessile. The polyp was removed with a cold snare. Resection and retrieval were complete. Verification of patient identification for the specimen was done by the physician and nurse using the patient's name, date and medical record number. For hemostasis, one hemostatic clip was successfully placed. There was no bleeding at the end of the procedure. Non-bleeding external and internal hemorrhoids were found during retroflexion. The hemorrhoids were medium-sized. Impression: - The examined portion of the ileum was normal. - One 10 mm polyp in the ascending colon, removed with a cold snare. Resected and retrieved. Clip was placed. - Non-bleeding external and internal hemorrhoids. Recommendation: - Patient has a contact number available for emergencies. The signs and symptoms of potential delayed complications were discussed with the patient. Return to normal activities tomorrow. Written discharge instructions were provided to the patient. - High fiber diet. - Continue present medications. - Await pathology results. - Repeat colonoscopy in 3 - 5 years for surveillance based on pathology results. - Telephone GI clinic for pathology results in 2 weeks. - Return to primary care physician. Yony Mark MD Yony Mark MD 09/13/2019 8:46:16 AM Electronically signed by Yony Mark MD Number of Addenda: 0 Note Initiated On: 09/13/2019 8:18 AM Estimated Blood Loss: Estimated blood loss was minimal.
[2019-09-13 09:05] VITALS: BP 115/59
== END 2019-09-13 09:15 | disposition home or self-care (01) ==
LOC: M OPP 06:42
PROVIDERS: ATTEND Internal Medicine Gastroenterology
DX: Z12.11 Encounter for screening for malignant neoplasm of colon (principal); Z80.0 Family history of malignant neoplasm of digestive organs; K64.8 Other hemorrhoids; K63.5 Polyp of colon

== ENCOUNTER 2019-10-03 10:15 | Outpatient (RCR) | payer OTHER ==
[~2019-10-03 10:15] MED LIST changes: -NS 1,000 ML IV ONE
== END 2019-10-24 | disposition home or self-care (01) ==
LOC: M PT 10:15
PROVIDERS: ATTEND Nurse Practitioner Family
DX: M51.36 Other intervertebral disc degeneration, lumbar region (principal); M62.830 Muscle spasm of back; M77.11 Lateral epicondylitis, right elbow

== ENCOUNTER → 2020-03-03 | Outpatient (CLI) | payer SELFPAY | LOC: M LABSMTC 10:57 | PROVIDERS: ATTEND Pediatrics | DX: U07.1 COVID-19 (principal) ==

== ENCOUNTER → 2020-04-19 | Outpatient (CLI) | payer OTHER ==
[~2020-04-19] MED LIST changes: +HYDR-3490 PO; -HYDR25TAB PO
[2020-04-19 10:31] LABS: HEMOGLOBIN A1c 5.3 %
== END ==
LOC: M WUC 08:31
PROVIDERS: ATTEND Family Medicine
DX: Z13.1 Encounter for screening for diabetes mellitus (principal)

== ENCOUNTER → 2020-05-23 | Outpatient (CLI) | payer OTHER ==
[~2020-05-23] MED LIST changes: +NAPR-849 PO; -NAPR250T4 PO
[2020-05-23 10:01] LABS: HEMATOCRIT 37.6 % (36.0-47.0); HEMOGLOBIN 11.9 g/dl (12.0-15.5); MEAN CORPUSCULAR HEMOGLOBIN 28.3 pg (27.0-33.0); MEAN CORPUSCULAR HGB CONC 31.6 g/dl (32.0-36.5); MEAN CORPUSCULAR VOLUME 89.5 fl (80.0-96.0); PLATELET COUNT, AUTOMATED 373 10^3/uL (150-450); WHITE BLOOD COUNT 9.8 10^3/uL (4.0-10.0)
[2020-05-23 10:38] LABS: ALBUMIN 3.5 GM/DL (3.2-5.2); ALT/SGPT 24 U/L (12-78); BILIRUBIN,TOTAL 0.3 MG/DL (0.2-1.0); BLOOD UREA NITROGEN 18 MG/DL (7-18); CALCIUM LEVEL 8.8 MG/DL (8.5-10.1); CARBON DIOXIDE LEVEL 27 MEQ/L (21-32); CHLORIDE LEVEL 109 MEQ/L (98-107); CREATININE FOR GFR 0.54 MG/DL (0.55-1.30); GLOMERULAR FILTRATION RATE > 60.0 (>51); GLUCOSE, FASTING 100 MG/DL (70-100); POTASSIUM SERUM 4.3 MEQ/L (3.5-5.1); SODIUM LEVEL 141 MEQ/L (136-145); TOTAL PROTEIN 7.3 GM/DL (6.4-8.2)
[2020-05-23 10:39] LABS: PROLACTIN 17.4 NG/ML
== END ==
LOC: M WUC 08:37
PROVIDERS: ATTEND Family Medicine
DX: D64.9 Anemia, unspecified (principal); Z86.018 Personal history of other benign neoplasm; R19.7 Diarrhea, unspecified

== ENCOUNTER → 2020-05-28 | Outpatient (CLI) | payer OTHER ==
--- NOTE | 2020-05-28 11:46 | REPPI ---
INDICATION: M54.5 LOW BACK PAIN COMPARISON: None. TECHNIQUE: AP, lateral, bilateral oblique, and coned-down views of the lumbar spine. FINDINGS: Alignment and lordosis maintained. Vertebral bodies are intact. Disc spaces are relatively normal/age-appropriate. No acute fracture/compression injury or subluxation. No obvious spondylolysis or spondylolisthesis.. Focal endplate sclerosis and early osteophyte formation at L2-3 and L1-2 noted. IMPRESSION: Mild early degenerative changes. <Electronically signed by Warner Mendez > 05/28/20 [id number]
== END ==
LOC: M PLAIMG 11:16
PROVIDERS: ATTEND Family Medicine
DX: M54.5 Low back pain (principal); M25.78 Osteophyte, vertebrae

== ENCOUNTER → 2021-01-03 | Outpatient (CLI) | payer OTHER | LOC: M WHC 07:42 | PROVIDERS: ATTEND Family Medicine | DX: Z12.31 Encounter for screening mammogram for malignant neoplasm of breast (principal); Z53.8 Procedure and treatment not carried out for other reasons ==

== ENCOUNTER → 2021-04-16 | Outpatient (CLI) | payer OTHER ==
[2021-04-16 18:36] LABS: AMORPHOUS SEDIMENT SMALL (NEGATIVE); APPEARANCE, URINE CLEAR (CLEAR); BACTERIA, URINE AUTO NEGATIVE (NEGATIVE); BILIRUBIN, URINE AUTO NEGATIVE (NEGATIVE); BLOOD, URINE BLOOD NEGATIVE (NEGATIVE); COLOR, URINE YELLOW (YELLOW); GLUCOSE, URINE (UA) AUTO NEGATIVE (NEGATIVE); KETONE, URINE AUTO NEGATIVE (NEGATIVE); LEUKOCYTE ESTERASE, URINE AUTO TRACE (NEGATIVE); MUCUS, URINE SMALL (NEGATIVE); NITRITE, URINE AUTO NEGATIVE (NEGATIVE); PROTEIN, URINE AUTO NEGATIVE (NEGATIVE); RBC, URINE AUTO 1 /HPF (0-3); SPECIFIC GRAVITY URINE AUTO 1.024 (1.002-1.035); SQUAMOUS EPITHELIAL CELL UR AU 1 /HPF (0-6); UROBILINOGEN, URINE AUTO 0.2 mg/dL (0.0-2.0); WBC, URINE AUTO 1 /HPF (0-3)
== END ==
LOC: M PLALAB 14:46
PROVIDERS: ATTEND Family Medicine
DX: R82.90 Unspecified abnormal findings in urine (principal)

== ENCOUNTER → 2021-07-23 | Outpatient (CLI) | payer OTHER ==
[2021-07-23 12:32] LABS: BASO # 0.1 10^3/uL (0.0-0.2); BASO % 0.7 % (0.0-1.0); EOS # 0.3 10^3/uL (0.0-0.5); EOS % 2.5 % (0.0-3.0); HEMATOCRIT 40.4 % (36.0-47.0); HEMOGLOBIN 12.5 g/dl (12.0-15.5); LYMPH % 17.7 % (24.0-44.0); MEAN CORPUSCULAR HEMOGLOBIN 28.3 pg (27.0-33.0); MEAN CORPUSCULAR HGB CONC 30.9 g/dl (32.0-36.5); MEAN CORPUSCULAR VOLUME 91.4 fl (80.0-96.0); MONO # 0.8 10^3/uL (0.0-0.8); MONO % 7.1 % (2.0-8.0); NEUTROPHILS # 7.8 10^3/uL (1.5-8.5); NEUTROPHILS % 70.8 % (36.0-66.0); PLATELET COUNT, AUTOMATED 399 10^3/uL (150-450); RED BLOOD COUNT 4.42 10^6/uL (4.00-5.40)
[2021-07-23 13:02] LABS: BLOOD UREA NITROGEN 15 MG/DL (7-18); CREATININE FOR GFR 0.68 MG/DL (0.55-1.30); FERRITIN 168 NG/ML (8-252); FOLATE 12.6 NG/ML; GLOMERULAR FILTRATION RATE > 60.0 (>51); IRON (FE) 52 UG/DL (50-170); TOTAL IRON BINDING CAPACITY 273 UG/DL (250-450); VITAMIN B12 LEVEL 671 PG/ML
[2021-07-25 06:08] LABS: IGASUB2 116.1 mg/dL (73.2-301.2); IGASUB3 26.9 mg/dL (13.4-97.9); IgA SERUM (part of Subclasses) 169 mg/dL (87-352); TISSUE TRANSGLUTAMINASE IgA <2 U/mL (0-3)
== END ==
LOC: M WUC 09:29
PROVIDERS: ATTEND Internal Medicine Gastroenterology
DX: R19.7 Diarrhea, unspecified (principal)

== ENCOUNTER → 2021-08-01 | Outpatient (CLI) | payer OTHER ==
[~2021-08-01] MED LIST changes: +IBUP200C29 PO
== END ==
LOC: M LABSMTC 10:49
PROVIDERS: ATTEND Anesthesiology
DX: Z01.818 Encounter for other preprocedural examination (principal); Z11.52 Encounter for screening for COVID-19

== ENCOUNTER 2021-08-06 07:49 | Day surgery (SDC) | payer OTHER ==
[~2021-08-06] VITALS: Ht 170.2 cm; Wt 148.7 kg
[~2021-08-06 07:49] MED LIST changes: +LIDOCAINE 2% 100MG/5ML SDV (FOR ANES.) As Ordered ONE; +NS 1,000 ML IV ONE; +propofoL 200 MG/20 ML VIAL As Ordered ONE
[2021-08-06 10:05] VITALS: BP 130/75
== END 2021-08-06 10:13 | disposition home or self-care (01) ==
LOC: M OPP 07:49
PROVIDERS: ATTEND Internal Medicine Gastroenterology
DX: K63.5 Polyp of colon (principal); K64.8 Other hemorrhoids; K52.9 Noninfective gastroenteritis and colitis, unspecified; K62.5 Hemorrhage of anus and rectum; Z79.1 Long term (current) use of non-steroidal anti-inflammatories (NSAID); Z91.040 Latex allergy status; Z87.442 Personal history of urinary calculi

== ENCOUNTER → 2021-09-11 | Outpatient (CLI) | payer OTHER ==
[~2021-09-11] MED LIST changes: -LIDOCAINE 2% 100MG/5ML SDV (FOR ANES.) As Ordered ONE; -NS 1,000 ML IV ONE; -propofoL 200 MG/20 ML VIAL As Ordered ONE
[2021-09-11 17:49] LABS: BASO # 0.1 10^3/uL (0.0-0.2); BASO % 0.6 % (0.0-1.0); EOS # 0.3 10^3/uL (0.0-0.5); EOS % 2.4 % (0.0-3.0); HEMOGLOBIN 11.7 g/dl (12.0-15.5); LYMPH # 1.8 10^3/uL (1.5-5.0); LYMPH % 16.3 % (24.0-44.0); MEAN CORPUSCULAR HEMOGLOBIN 29.1 pg (27.0-33.0); MEAN CORPUSCULAR HGB CONC 31.6 g/dl (32.0-36.5); MONO # 0.6 10^3/uL (0.0-0.8); MONO % 5.7 % (2.0-8.0); NEUTROPHILS # 8.1 10^3/uL (1.5-8.5); NEUTROPHILS % 73.8 % (36.0-66.0); PLATELET COUNT, AUTOMATED 352 10^3/uL (150-450); RED BLOOD COUNT 4.02 10^6/uL (4.00-5.40); WHITE BLOOD COUNT 10.9 10^3/uL (4.0-10.0)
[2021-09-11 18:54] LABS: C REACTIVE PROTEIN QUANTITATIV 2.72 MG/DL (0.00-0.30); ERYTHROCYTE SEDIMENTATION RATE 69 mm/hr (0-30); RHEUMATOID FACTOR QUANT < 10.0 IU/ML (<15.0)
== END ==
LOC: M WUC 12:59
PROVIDERS: ATTEND Orthopaedic Surgery
DX: M19.031 Primary osteoarthritis, right wrist (principal)

== ENCOUNTER → 2021-09-23 | Outpatient (REF) | payer OTHER | LOC: M LAB REF 16:00 | PROVIDERS: ATTEND Internal Medicine Gastroenterology | DX: R19.7 Diarrhea, unspecified (principal) ==

== ENCOUNTER 2021-10-22 10:03 | Outpatient (RCR) | payer OTHER | END 2021-10-23 | LOC: M PT 10:03 | PROVIDERS: ATTEND Physician Assistant Surgical | DX: M43.02 Spondylolysis, cervical region (principal) ==

== ENCOUNTER 2021-11-11 10:15 | Outpatient (RCR) | payer OTHER | END 2021-11-22 | LOC: M PT 10:15 | PROVIDERS: ATTEND Physician Assistant Surgical | DX: M54.2 Cervicalgia (principal) ==

== ENCOUNTER → 2022-01-05 | Outpatient (CLI) | payer OTHER ==
[2022-01-05 12:23] LABS: BASO # 0.1 10^3/uL (0.0-0.2); BASO % 0.7 % (0.0-1.0); EOS # 0.4 10^3/uL (0.0-0.5); EOS % 3.7 % (0.0-3.0); HEMATOCRIT 36.8 % (36.0-47.0); HEMOGLOBIN 11.7 g/dl (12.0-15.5); LYMPH # 1.9 10^3/uL (1.5-5.0); LYMPH % 17.4 % (24.0-44.0); MEAN CORPUSCULAR HEMOGLOBIN 28.7 pg (27.0-33.0); MEAN CORPUSCULAR HGB CONC 31.8 g/dl (32.0-36.5); MEAN CORPUSCULAR VOLUME 90.4 fl (80.0-96.0); MONO # 0.7 10^3/uL (0.0-0.8); MONO % 6.3 % (2.0-8.0); NEUTROPHILS # 7.6 10^3/uL (1.5-8.5); NEUTROPHILS % 71.2 % (36.0-66.0); PLATELET COUNT, AUTOMATED 361 10^3/uL (150-450); RED BLOOD COUNT 4.07 10^6/uL (4.00-5.40); WHITE BLOOD COUNT 10.6 10^3/uL (4.0-10.0)
[2022-01-05 12:57] LABS: ALBUMIN 3.4 GM/DL (3.2-5.2); ALT/SGPT 22 U/L (12-78); BILIRUBIN,TOTAL 0.4 MG/DL (0.2-1.0); BLOOD UREA NITROGEN 12 MG/DL (7-18); CALCIUM LEVEL 9.2 MG/DL (8.5-10.1); CARBON DIOXIDE LEVEL 28 MEQ/L (21-32); CHLORIDE LEVEL 105 MEQ/L (98-107); CREATININE FOR GFR 0.66 MG/DL (0.55-1.30); GLOMERULAR FILTRATION RATE > 60.0 (>51); GLUCOSE, FASTING 99 MG/DL (70-100); POTASSIUM SERUM 4.1 MEQ/L (3.5-5.1); SODIUM LEVEL 138 MEQ/L (136-145); TOTAL PROTEIN 7.5 GM/DL (6.4-8.2)
== END ==
LOC: M LAB 11:58
PROVIDERS: ATTEND Family Medicine
DX: M79.89 Other specified soft tissue disorders (principal)

== ENCOUNTER → 2022-01-07 | Outpatient (REF) | payer OTHER ==
[2022-01-08 12:52] LABS: APPEARANCE, URINE MANUAL CLOUDY (CLEAR); COLOR, URINE MANUAL YELLOW (YELLOW)
[2022-01-08 12:53] LABS: BILIRUBIN, URINE MANUAL NEGATIVE (NEGATIVE); BLOOD URINE MANUAL POSITIVE (NEGATIVE); GLUCOSE, URINE (UA) MANUAL NEGATIVE (NEGATIVE); KETONE, URINE MANUAL NEGATIVE (NEGATIVE); LEUKOCYTE ESTERASE, URINE MAN NEGATIVE (NEGATIVE); NITRITE, URINE MANUAL NEGATIVE (NEGATIVE); PROTEIN, URINE MANUAL TRACE mg/dL (NEGATIVE); UROBILINOGEN, URINE MANUAL NORMAL (NORMAL)
[2022-01-08 13:15] LABS: CREATININE, URINE 163.9 MG/DL
[2022-01-08 13:27] LABS: AMORPHOUS SEDIMENT, URINE LARGE AMOUNT (NEGATIVE); BACTERIA, URINE SMALL AMOUNT; HYALINE CAST, URINE NONE SEEN /lpf (0-1); MUCUS, URINE SMALL AMOUNT (NEGATIVE); SQUAMOUS EPITHELIAL CELL URINE LARGE AMOUNT /hpf (SMALL AMT)
== END ==
LOC: M SFHCLERA 11:28
PROVIDERS: ATTEND Family Medicine
DX: M79.89 Other specified soft tissue disorders (principal)

== ENCOUNTER → 2022-01-27 | Outpatient (CLI) | payer OTHER ==
[2022-01-27 13:39] LABS: APPEARANCE, URINE MANUAL HAZY (CLEAR); COLOR, URINE MANUAL YELLOW (YELLOW)
[2022-01-27 13:40] LABS: MYOGLOBIN SCREEN, URINE NEGATIVE (NEGATIVE); SPECIFIC GRAVITY,URINE MANUAL 1.025 (1.002-1.035)
[2022-01-27 13:41] LABS: BILIRUBIN, URINE MANUAL NEGATIVE (NEGATIVE); BLOOD URINE MANUAL NEGATIVE (NEGATIVE); GLUCOSE, URINE (UA) MANUAL NEGATIVE (NEGATIVE); KETONE, URINE MANUAL NEGATIVE (NEGATIVE); LEUKOCYTE ESTERASE, URINE MAN POSITIVE (NEGATIVE); NITRITE, URINE MANUAL NEGATIVE (NEGATIVE); PROTEIN, URINE MANUAL TRACE mg/dL (NEGATIVE); UROBILINOGEN, URINE MANUAL NORMAL (NORMAL)
[2022-01-27 14:43] LABS: RBC, URINE 0-1 /hpf (0-3); SQUAMOUS EPITHELIAL CELL URINE SMALL AMOUNT /hpf (SMALL AMT)
[2022-01-27 14:44] LABS: AMORPHOUS SEDIMENT, URINE SMALL AMOUNT (NEGATIVE); BACTERIA, URINE MOD AMOUNT; HYALINE CAST, URINE NONE SEEN /lpf (0-1)
== END ==
LOC: M WUC 09:05
PROVIDERS: ATTEND Family Medicine
DX: R31.29 Other microscopic hematuria (principal)

== ENCOUNTER → 2022-04-28 | Outpatient (REF) | payer BC ==
[2022-04-28 18:11] LABS: BASO # 0.1 10^3/uL (0.0-0.2); BASO % 0.7 % (0.0-1.0); EOS # 0.3 10^3/uL (0.0-0.5); EOS % 2.6 % (0.0-3.0); HEMATOCRIT 38.7 % (36.0-47.0); HEMOGLOBIN 12.1 g/dl (12.0-15.5); LYMPH % 18.9 % (24.0-44.0); MEAN CORPUSCULAR HEMOGLOBIN 28.5 pg (27.0-33.0); MEAN CORPUSCULAR HGB CONC 31.3 g/dl (32.0-36.5); MEAN CORPUSCULAR VOLUME 91.1 fl (80.0-96.0); MONO # 0.8 10^3/uL (0.0-0.8); MONO % 7.9 % (2.0-8.0); NEUTROPHILS # 7.3 10^3/uL (1.5-8.5); NEUTROPHILS % 69.3 % (36.0-66.0); PLATELET COUNT, AUTOMATED 416 10^3/uL (150-450); RED BLOOD COUNT 4.25 10^6/uL (4.00-5.40); WHITE BLOOD COUNT 10.4 10^3/uL (4.0-10.0)
[2022-04-28 18:36] LABS: IMMUNOGLOBULIN A 190.3 MG/DL (40-350); IMMUNOGLOBULIN G 1778 MG/DL (650-1600); IMMUNOGLOBULIN M 122.5 MG/DL (50-300)
[2022-04-28 18:37] LABS: COMPLEMENT C3 170.2 MG/DL (90.0-170.0); COMPLEMENT C4 27.9 MG/DL (12-36)
[2022-04-28 18:43] LABS: ALBUMIN 3.5 G/DL (3.2-5.2); ALKALINE PHOSPHATASE 86 U/L (46-116); ALT/SGPT 15 U/L (7.0-40); AST/SGOT 15 U/L (<34); BILIRUBIN,TOTAL 0.5 MG/DL (0.3-1.2); BLOOD UREA NITROGEN 16 MG/DL (9-23); CARBON DIOXIDE LEVEL 28 MMOL/L (20-31); CHLORIDE LEVEL 101 MMOL/L (98-107); CREATININE FOR GFR 0.58 MG/DL (0.55-1.30); GLOMERULAR FILTRATION RATE > 60.0 (>51); GLUCOSE, FASTING 85 MG/DL (60-100); POTASSIUM SERUM 4.4 MMOL/L (3.5-5.1); SODIUM LEVEL 137 MMOL/L (136-145); TOTAL PROTEIN 7.4 G/DL (5.7-8.2)
[2022-04-28 19:03] LABS: ERYTHROCYTE SEDIMENTATION RATE 70 mm/hr (0-30)
== END ==
LOC: M SFHCRHEU 14:48
PROVIDERS: ATTEND Internal Medicine Rheumatology
DX: M35.3 Polymyalgia rheumatica (principal); H04.123 Dry eye syndrome of bilateral lacrimal glands; R06.02 Shortness of breath; R79.82 Elevated C-reactive protein (CRP)

== ENCOUNTER → 2022-04-30 | Outpatient (CLI) | payer BC, OTHER | LOC: M CARPUL 08:29 | PROVIDERS: ATTEND Family Medicine | DX: R06.01 Orthopnea (principal); I27.20 Pulmonary hypertension, unspecified ==

== ENCOUNTER → 2022-05-01 | Outpatient (CLI) | payer BC, OTHER | LOC: M WUC 09:04 | PROVIDERS: ATTEND Internal Medicine Rheumatology | DX: M19.041 Primary osteoarthritis, right hand (principal); M19.042 Primary osteoarthritis, left hand; M19.071 Primary osteoarthritis, right ankle and foot; M19.072 Primary osteoarthritis, left ankle and foot; M35.3 Polymyalgia rheumatica; H04.123 Dry eye syndrome of bilateral lacrimal glands; R06.02 Shortness of breath; R79.82 Elevated C-reactive protein (CRP) ==

== ENCOUNTER → 2022-05-01 | Outpatient (CLI) | payer BC, OTHER ==
[2022-05-01 13:23] LABS: BLOOD UREA NITROGEN 15 MG/DL (9-23); CALCIUM LEVEL 8.8 MG/DL (8.5-10.1); CARBON DIOXIDE LEVEL 26 MMOL/L (20-31); CHLORIDE LEVEL 103 MMOL/L (98-107); CREATININE FOR GFR 0.57 MG/DL (0.55-1.30); GLOMERULAR FILTRATION RATE > 60.0 (>51); GLUCOSE, FASTING 107 MG/DL (60-100); POTASSIUM SERUM 4.1 MMOL/L (3.5-5.1); SODIUM LEVEL 138 MMOL/L (136-145)
== END ==
LOC: M WUC 09:01
PROVIDERS: ATTEND Family Medicine
DX: M79.89 Other specified soft tissue disorders (principal); R06.01 Orthopnea

== ENCOUNTER → 2022-05-01 | Outpatient (CLI) | payer BC, OTHER ==
[2022-05-01 12:52] LABS: BASO # 0.1 10^3/uL (0.0-0.2); BASO % 0.5 % (0.0-1.0); EOS # 0.3 10^3/uL (0.0-0.5); EOS % 2.7 % (0.0-3.0); HEMOGLOBIN 11.7 g/dl (12.0-15.5); LYMPH # 1.7 10^3/uL (1.5-5.0); LYMPH % 15.7 % (24.0-44.0); MEAN CORPUSCULAR HEMOGLOBIN 28.5 pg (27.0-33.0); MEAN CORPUSCULAR HGB CONC 31.6 g/dl (32.0-36.5); MONO # 0.8 10^3/uL (0.0-0.8); MONO % 7.6 % (2.0-8.0); NEUTROPHILS # 7.9 10^3/uL (1.5-8.5); NEUTROPHILS % 72.8 % (36.0-66.0); PLATELET COUNT, AUTOMATED 377 10^3/uL (150-450); RED BLOOD COUNT 4.11 10^6/uL (4.00-5.40); WHITE BLOOD COUNT 10.8 10^3/uL (4.0-10.0)
[2022-05-01 13:34] LABS: ERYTHROCYTE SEDIMENTATION RATE 53 mm/hr (0-30)
== END ==
LOC: M WUC 08:59
PROVIDERS: ATTEND Orthopaedic Surgery
DX: M19.031 Primary osteoarthritis, right wrist (principal)

== ENCOUNTER → 2022-06-13 | Outpatient (CLI) | payer BC, OTHER ==
[~2022-06-13] MED LIST changes: +ACET325C5 PO; +FURO40TA2
== END ==
LOC: M WHC 10:22
PROVIDERS: ATTEND Family Medicine
DX: R80.9 Proteinuria, unspecified (principal)

== ENCOUNTER → 2022-07-09 | Outpatient (REF) | payer BC ==
[2022-07-09 12:34] LABS: BASO # 0.1 10^3/uL (0.0-0.2); BASO % 0.8 % (0.0-1.0); EOS # 0.2 10^3/uL (0.0-0.5); EOS % 1.7 % (0.0-3.0); HEMATOCRIT 39.5 % (36.0-47.0); HEMOGLOBIN 12.3 g/dl (12.0-15.5); LYMPH # 2.7 10^3/uL (1.5-5.0); LYMPH % 24.3 % (24.0-44.0); MEAN CORPUSCULAR HEMOGLOBIN 27.9 pg (27.0-33.0); MEAN CORPUSCULAR HGB CONC 31.1 g/dl (32.0-36.5); MEAN CORPUSCULAR VOLUME 89.6 fl (80.0-96.0); MONO # 0.8 10^3/uL (0.0-0.8); MONO % 7.5 % (2.0-8.0); NEUTROPHILS # 7.2 10^3/uL (1.5-8.5); NEUTROPHILS % 64.6 % (36.0-66.0); PLATELET COUNT, AUTOMATED 371 10^3/uL (150-450); RED BLOOD COUNT 4.41 10^6/uL (4.00-5.40); WHITE BLOOD COUNT 11.1 10^3/uL (4.0-10.0)
[2022-07-09 13:02] LABS: ALBUMIN 3.6 G/DL (3.2-5.2); ALKALINE PHOSPHATASE 83 U/L (46-116); ALT/SGPT 13 U/L (7.0-40); AST/SGOT 12 U/L (<34); BILIRUBIN,TOTAL 0.4 MG/DL (0.3-1.2); BLOOD UREA NITROGEN 19 MG/DL (9-23); CALCIUM LEVEL 9.1 MG/DL (8.5-10.1); CARBON DIOXIDE LEVEL 28 MMOL/L (20-31); CHLORIDE LEVEL 103 MMOL/L (98-107); CREATININE FOR GFR 0.63 MG/DL (0.55-1.30); GLOMERULAR FILTRATION RATE > 60.0 (>51); GLUCOSE, FASTING 92 MG/DL (60-100); SODIUM LEVEL 138 MMOL/L (136-145); TOTAL PROTEIN 7.2 G/DL (5.7-8.2)
[2022-07-09 13:30] LABS: ERYTHROCYTE SEDIMENTATION RATE 52 mm/hr (0-30)
== END ==
LOC: M SFHCRHEU 07:05
PROVIDERS: ATTEND Internal Medicine Rheumatology
DX: M35.3 Polymyalgia rheumatica (principal); H04.123 Dry eye syndrome of bilateral lacrimal glands; R06.02 Shortness of breath; R79.82 Elevated C-reactive protein (CRP)

== ENCOUNTER → 2022-07-11 | Outpatient (CLI) | payer BC, OTHER ==
[~2022-07-11] MED LIST changes: +ISOVUE-370 76% 100ML VIAL As Ordered ONE
== END ==
LOC: M RAD 08:31
PROVIDERS: ATTEND Family Medicine
DX: N28.1 Cyst of kidney, acquired (principal); R93.429 Abnormal radiologic findings on diagnostic imaging of unspecified kidney
CPT/HCPCS: 74170; Q9967

== ENCOUNTER → 2022-09-02 | Outpatient (REF) | payer BC ==
[~2022-09-02] MED LIST changes: -ISOVUE-370 76% 100ML VIAL As Ordered ONE
[2022-09-02 14:10] LABS: HEMATOCRIT 37.6 % (36.0-47.0); HEMOGLOBIN 12.1 g/dl (12.0-15.5); MEAN CORPUSCULAR HEMOGLOBIN 29.3 pg (27.0-33.0); MEAN CORPUSCULAR HGB CONC 32.2 g/dl (32.0-36.5); PLATELET COUNT, AUTOMATED 362 10^3/uL (150-450); RED BLOOD COUNT 4.13 10^6/uL (4.00-5.40)
[2022-09-02 14:16] LABS: ALBUMIN 3.3 G/DL (3.2-5.2); ALKALINE PHOSPHATASE 83 U/L (46-116); ALT/SGPT 16 U/L (7.0-40); AST/SGOT < 8 U/L (<34); BILIRUBIN,TOTAL 0.5 MG/DL (0.3-1.2); BLOOD UREA NITROGEN 16 MG/DL (9-23); CALCIUM LEVEL 9.8 MG/DL (8.5-10.1); CARBON DIOXIDE LEVEL 26 MMOL/L (20-31); CHLORIDE LEVEL 104 MMOL/L (98-107); CREATININE FOR GFR 0.63 MG/DL (0.55-1.30); GLOMERULAR FILTRATION RATE > 60.0 (>51); GLUCOSE, FASTING 105 MG/DL (60-100); SODIUM LEVEL 137 MMOL/L (136-145); TOTAL PROTEIN 6.9 G/DL (5.7-8.2)
[2022-09-02 14:28] LABS: ERYTHROCYTE SEDIMENTATION RATE 68 mm/hr (0-30)
== END ==
LOC: M SFHCRHEU 07:24
PROVIDERS: ATTEND Internal Medicine Rheumatology
DX: M35.3 Polymyalgia rheumatica (principal); H04.123 Dry eye syndrome of bilateral lacrimal glands; R06.02 Shortness of breath; R79.82 Elevated C-reactive protein (CRP); D64.9 Anemia, unspecified

== ENCOUNTER → 2022-09-19 | Outpatient (REF) | payer BC | LOC: M SFHCRHEU 16:22 | PROVIDERS: ATTEND Internal Medicine Rheumatology | DX: M35.3 Polymyalgia rheumatica (principal); H04.123 Dry eye syndrome of bilateral lacrimal glands; R06.02 Shortness of breath; R79.82 Elevated C-reactive protein (CRP) ==

== ENCOUNTER → 2022-10-30 | Outpatient (REF) | payer BC ==
[~2022-10-30] MED LIST changes: +ESTR625TA; +PRED1TABL
[2022-10-30 13:38] LABS: BASO # 0.1 10^3/uL (0.0-0.2); BASO % 0.8 % (0.0-1.0); EOS # 0.2 10^3/uL (0.0-0.5); EOS % 1.7 % (0.0-3.0); HEMATOCRIT 37.3 % (36.0-47.0); HEMOGLOBIN 11.6 g/dl (12.0-15.5); LYMPH # 1.9 10^3/uL (1.5-5.0); LYMPH % 17.9 % (24.0-44.0); MEAN CORPUSCULAR HEMOGLOBIN 29.1 pg (27.0-33.0); MEAN CORPUSCULAR HGB CONC 31.1 g/dl (32.0-36.5); MEAN CORPUSCULAR VOLUME 93.5 fl (80.0-96.0); MONO # 0.7 10^3/uL (0.0-0.8); MONO % 7.1 % (2.0-8.0); NEUTROPHILS # 7.3 10^3/uL (1.5-8.5); NEUTROPHILS % 70.7 % (36.0-66.0); PLATELET COUNT, AUTOMATED 345 10^3/uL (150-450); RED BLOOD COUNT 3.99 10^6/uL (4.00-5.40); WHITE BLOOD COUNT 10.3 10^3/uL (4.0-10.0)
[2022-10-30 14:01] LABS: ALBUMIN 3.4 G/DL (3.2-5.2); ALKALINE PHOSPHATASE 82 U/L (46-116); ALT/SGPT 14 U/L (7.0-40); AST/SGOT < 8 U/L (<34); BILIRUBIN,TOTAL 0.4 MG/DL (0.3-1.2); BLOOD UREA NITROGEN 17 MG/DL (9-23); CALCIUM LEVEL 8.8 MG/DL (8.5-10.1); CARBON DIOXIDE LEVEL 27 MMOL/L (20-31); CHLORIDE LEVEL 104 MMOL/L (98-107); CREATININE FOR GFR 0.62 MG/DL (0.55-1.30); GLOMERULAR FILTRATION RATE > 60.0 (>51); GLUCOSE, FASTING 97 MG/DL (60-100); SODIUM LEVEL 139 MMOL/L (136-145); TOTAL PROTEIN 7.1 G/DL (5.7-8.2)
[2022-10-30 14:14] LABS: ERYTHROCYTE SEDIMENTATION RATE 57 mm/hr (0-30)
== END ==
LOC: M SFHCRHEU 07:48
PROVIDERS: ATTEND Internal Medicine Rheumatology
DX: M35.3 Polymyalgia rheumatica (principal); H04.123 Dry eye syndrome of bilateral lacrimal glands; R06.02 Shortness of breath; R79.82 Elevated C-reactive protein (CRP)

== ENCOUNTER → 2022-12-26 | Outpatient (REF) | payer BC ==
[~2022-12-26] MED LIST changes: +NAPR-885
== END ==
LOC: M SFHCRHEU 16:27
PROVIDERS: ATTEND Internal Medicine Rheumatology
DX: M35.3 Polymyalgia rheumatica (principal); H04.123 Dry eye syndrome of bilateral lacrimal glands; R06.02 Shortness of breath; R79.82 Elevated C-reactive protein (CRP); R76.8 Other specified abnormal immunological findings in serum

== ENCOUNTER → 2023-02-02 | Outpatient (CLI) | payer BC ==
[~2023-02-02] MED LIST changes: +ALBU2.5V10 INH; +ALBU6.7H6 INH; -ESTR625TA; +ESTR625TA PO; +OSEL75CA PO; -PRED1TABL; +PRED1TABL PO
[2023-02-02 12:31] LABS: BASO # 0.1 10^3/uL (0.0-0.2); BASO % 0.6 % (0.0-1.0); EOS # 0.3 10^3/uL (0.0-0.5); EOS % 2.1 % (0.0-3.0); HEMATOCRIT 38.1 % (36.0-47.0); HEMOGLOBIN 11.8 g/dl (12.0-15.5); LYMPH # 0.8 10^3/uL (1.5-5.0); MEAN CORPUSCULAR HEMOGLOBIN 28.1 pg (27.0-33.0); MEAN CORPUSCULAR VOLUME 90.7 fl (80.0-96.0); MONO % 8.1 % (2.0-8.0); NEUTROPHILS # 9.6 10^3/uL (1.5-8.5); NEUTROPHILS % 81.5 % (36.0-66.0); PLATELET COUNT, AUTOMATED 324 10^3/uL (150-450); WHITE BLOOD COUNT 11.8 10^3/uL (4.0-10.0)
[2023-02-02 12:45] LABS: ERYTHROCYTE SEDIMENTATION RATE 57 mm/hr (0-30)
[2023-02-02 13:04] LABS: ALBUMIN 3.2 G/DL (3.2-5.2); ALKALINE PHOSPHATASE 90 U/L (46-116); ALT/SGPT 12 U/L (7.0-40); AST/SGOT 9 U/L (<34); BILIRUBIN,TOTAL 0.4 MG/DL (0.3-1.2); BLOOD UREA NITROGEN 14 MG/DL (9-23); CALCIUM LEVEL 8.6 MG/DL (8.5-10.1); CARBON DIOXIDE LEVEL 27 MMOL/L (20-31); CHLORIDE LEVEL 104 MMOL/L (98-107); CREATININE FOR GFR 0.62 MG/DL (0.55-1.30); GLOMERULAR FILTRATION RATE > 60.0 (>51); GLUCOSE, FASTING 111 MG/DL (60-100); SODIUM LEVEL 139 MMOL/L (136-145)
== END ==
LOC: M WUC 09:26
PROVIDERS: ATTEND Internal Medicine Rheumatology
DX: M35.3 Polymyalgia rheumatica (principal); H04.123 Dry eye syndrome of bilateral lacrimal glands; R79.82 Elevated C-reactive protein (CRP); R76.8 Other specified abnormal immunological findings in serum

== ENCOUNTER 2023-02-05 07:57 | Emergency (ER) | payer BC ==
[~2023-02-05] VITALS: Ht 170.2 cm; Wt 151.4 kg
[~2023-02-05 07:57] MED LIST changes: -ALBU2.5V10 INH; -ALBU6.7H6 INH; -OSEL75CA PO
[2023-02-05] MEDS ORDERED: ASPIRIN 81MG CHEW TABLET PO ONE (08:30)
[2023-02-05] MEDS: COMBIVENT RESPIMAT 100-20MCG INHALER 4GM INH PRN ×2 (08:47→08:49)
[2023-02-05 09:02] LABS: BASO % 0.6 % (0.0-1.0); EOS # 0.2 10^3/uL (0.0-0.5); EOS % 3.3 % (0.0-3.0); HEMOGLOBIN 12.7 g/dl (12.0-15.5); LYMPH # 1.1 10^3/uL (1.5-5.0); LYMPH % 15.3 % (24.0-44.0); MEAN CORPUSCULAR HGB CONC 32.6 g/dl (32.0-36.5); MONO # 0.7 10^3/uL (0.0-0.8); MONO % 10.3 % (2.0-8.0); NEUTROPHILS % 69.7 % (36.0-66.0); PLATELET COUNT, AUTOMATED 289 10^3/uL (150-450); RED BLOOD COUNT 4.38 10^6/uL (4.00-5.40); WHITE BLOOD COUNT 7.2 10^3/uL (4.0-10.0)
[2023-02-05 09:27] LABS: CK-MB VALUE MASS < 1.0 NG/ML (<3.6); LIPASE 22 U/L (12-53)
[2023-02-05 09:29] LABS: ALBUMIN 3.3 G/DL (3.2-5.2); ALKALINE PHOSPHATASE 79 U/L (46-116); ALT/SGPT 19 U/L (7.0-40); AST/SGOT 26 U/L (<34); BILIRUBIN,DIRECT 0.1 MG/DL (<0.4); BILIRUBIN,TOTAL 0.4 MG/DL (0.3-1.2); BLOOD UREA NITROGEN 12 MG/DL (9-23); CALCIUM LEVEL 8.7 MG/DL (8.5-10.1); CARBON DIOXIDE LEVEL 27 MMOL/L (20-31); CHLORIDE LEVEL 104 MMOL/L (98-107); CREATININE FOR GFR 0.58 MG/DL (0.55-1.30); GLOMERULAR FILTRATION RATE > 60.0 (>51); GLUCOSE, FASTING 124 MG/DL (60-100); SODIUM LEVEL 139 MMOL/L (136-145); TOTAL PROTEIN 7.1 G/DL (5.7-8.2)
[2023-02-05 09:31] LABS: FREE T4 1.07 NG/DL (0.89-1.76); THYROID STIMULATING HORMONE 5.416 uIU/ML (0.55-4.78)
[2023-02-05 09:35] LABS: CPK CREATINE PHOSPHOKINASE 63 U/L (34-145); MB/CK RELATIVE INDEX 1.58 (< OR =4)
[2023-02-05] MEDS ORDERED: ISOVUE-370 76% 100ML VIAL As Ordered ONE (10:00)
[2023-02-05 10:20] LABS: CK-MB VALUE MASS < 1.0 NG/ML (<3.6)
[2023-02-05 10:26] LABS: CPK CREATINE PHOSPHOKINASE 57 U/L (34-145); MB/CK RELATIVE INDEX 1.75 (< OR =4)
[2023-02-05] MEDS ORDERED: MED REC IN PROGRESS XX SCH (11:10)
[2023-02-05] MEDS ORDERED: HOME MED LIST COMPLETE! XX SCH (11:15)
[2023-02-05 12:30] VITALS: BP 131/71
[2023-02-05] MEDS ORDERED: ALBU2.5V10 INH (12:35)
[2023-02-05] MEDS ORDERED: OSEL75CA PO (12:35)
[2023-02-05 12:57] VITALS: TEMP 97.3; O2SAT 95
[2023-02-05] MEDS ORDERED: ALBU6.7H6 INH (13:00)
== END 2023-02-05 13:02 | disposition home or self-care (01) ==
LOC: M ED 07:57
DX: J09.X1 Influenza due to identified novel influenza A virus with pneumonia (principal); Z79.890 Hormone replacement therapy; Z91.040 Latex allergy status; Z91.89 Other specified personal risk factors, not elsewhere classified
CPT/HCPCS: 71045; 71275; 80048; 80076; 82550; 82553; 83690; 84439; 84443; 84484; 85025; 87040; 87486; 87581; 87633; 87798; 93005; 93041; 94640; 94760; 99285; Q9967

== ENCOUNTER → 2023-03-02 | Outpatient (REF) | payer BC ==
[~2023-03-02] MED LIST changes: +ALBU2.5V10 INH; +ALBU6.7H6 INH; +OSEL75CA PO
[2023-03-02 19:44] LABS: BASO # 0.1 10^3/uL (0.0-0.2); BASO % 0.5 % (0.0-1.0); EOS # 0.2 10^3/uL (0.0-0.5); EOS % 1.5 % (0.0-3.0); HEMATOCRIT 39.5 % (36.0-47.0); HEMOGLOBIN 12.6 g/dl (12.0-15.5); LYMPH # 2.4 10^3/uL (1.5-5.0); LYMPH % 16.9 % (24.0-44.0); MEAN CORPUSCULAR HEMOGLOBIN 28.9 pg (27.0-33.0); MEAN CORPUSCULAR HGB CONC 31.9 g/dl (32.0-36.5); MEAN CORPUSCULAR VOLUME 90.6 fl (80.0-96.0); MONO # 0.8 10^3/uL (0.0-0.8); MONO % 5.8 % (2.0-8.0); NEUTROPHILS # 10.7 10^3/uL (1.5-8.5); NEUTROPHILS % 74.5 % (36.0-66.0); PLATELET COUNT, AUTOMATED 402 10^3/uL (150-450); RED BLOOD COUNT 4.36 10^6/uL (4.00-5.40); WHITE BLOOD COUNT 14.4 10^3/uL (4.0-10.0)
[2023-03-02 19:52] LABS: ERYTHROCYTE SEDIMENTATION RATE 81 mm/hr (0-30)
[2023-03-02 20:04] LABS: ALBUMIN 3.5 G/DL (3.2-5.2); ALKALINE PHOSPHATASE 82 U/L (46-116); ALT/SGPT 13 U/L (7.0-40); AST/SGOT 11 U/L (<34); BILIRUBIN,TOTAL 0.4 MG/DL (0.3-1.2); BLOOD UREA NITROGEN 14 MG/DL (9-23); CALCIUM LEVEL 9.7 MG/DL (8.5-10.1); CARBON DIOXIDE LEVEL 27 MMOL/L (20-31); CHLORIDE LEVEL 102 MMOL/L (98-107); CREATININE FOR GFR 0.63 MG/DL (0.55-1.30); GLOMERULAR FILTRATION RATE > 60.0 (>51); GLUCOSE, FASTING 97 MG/DL (60-100); POTASSIUM SERUM 4.3 MMOL/L (3.5-5.1); SODIUM LEVEL 135 MMOL/L (136-145); TOTAL PROTEIN 7.3 G/DL (5.7-8.2)
== END ==
LOC: M LAB REF 19:10
PROVIDERS: ATTEND Internal Medicine Rheumatology
DX: M35.3 Polymyalgia rheumatica (principal); H04.123 Dry eye syndrome of bilateral lacrimal glands; R06.02 Shortness of breath; R79.82 Elevated C-reactive protein (CRP); R76.8 Other specified abnormal immunological findings in serum

== ENCOUNTER → 2023-03-26 | Outpatient (CLI) | payer BC ==
[2023-03-26 20:11] LABS: BASO # 0.1 10^3/uL (0.0-0.2); BASO % 0.6 % (0.0-1.0); EOS # 0.3 10^3/uL (0.0-0.5); EOS % 2.1 % (0.0-3.0); HEMATOCRIT 39.6 % (36.0-47.0); HEMOGLOBIN 12.6 g/dl (12.0-15.5); LYMPH # 2.4 10^3/uL (1.5-5.0); LYMPH % 16.3 % (24.0-44.0); MEAN CORPUSCULAR HEMOGLOBIN 28.8 pg (27.0-33.0); MEAN CORPUSCULAR HGB CONC 31.8 g/dl (32.0-36.5); MEAN CORPUSCULAR VOLUME 90.6 fl (80.0-96.0); MONO # 1.1 10^3/uL (0.0-0.8); MONO % 7.8 % (2.0-8.0); NEUTROPHILS # 10.5 10^3/uL (1.5-8.5); NEUTROPHILS % 72.4 % (36.0-66.0); PLATELET COUNT, AUTOMATED 419 10^3/uL (150-450); RED BLOOD COUNT 4.37 10^6/uL (4.00-5.40); WHITE BLOOD COUNT 14.5 10^3/uL (4.0-10.0)
[2023-03-26 20:15] LABS: ERYTHROCYTE SEDIMENTATION RATE 78 mm/hr (0-30)
[2023-03-26 20:38] LABS: ALBUMIN 3.6 G/DL (3.2-5.2); ALKALINE PHOSPHATASE 86 U/L (46-116); ALT/SGPT 16 U/L (7.0-40); AST/SGOT 13 U/L (<34); BILIRUBIN,TOTAL 0.3 MG/DL (0.3-1.2); BLOOD UREA NITROGEN 12 MG/DL (9-23); CALCIUM LEVEL 9.2 MG/DL (8.5-10.1); CARBON DIOXIDE LEVEL 26 MMOL/L (20-31); CHLORIDE LEVEL 104 MMOL/L (98-107); CREATININE FOR GFR 0.62 MG/DL (0.55-1.30); GLOMERULAR FILTRATION RATE > 60.0 (>51); GLUCOSE, FASTING 77 MG/DL (60-100); POTASSIUM SERUM 3.6 MMOL/L (3.5-5.1); SODIUM LEVEL 140 MMOL/L (136-145); TOTAL PROTEIN 7.7 G/DL (5.7-8.2)
== END ==
LOC: M WUC 15:36
PROVIDERS: ATTEND Internal Medicine Rheumatology
DX: M35.3 Polymyalgia rheumatica (principal); H04.123 Dry eye syndrome of bilateral lacrimal glands; R06.02 Shortness of breath; R79.82 Elevated C-reactive protein (CRP)

== ENCOUNTER → 2023-08-21 | Outpatient (REF) | payer BC | LOC: M SFHCRHEU 15:09 | PROVIDERS: ATTEND Internal Medicine Rheumatology | DX: M35.3 Polymyalgia rheumatica (principal) ==

== ENCOUNTER → 2023-09-03 | Outpatient (CLI) | payer BC | LOC: M WUC 08:36 | PROVIDERS: ATTEND Internal Medicine Rheumatology | DX: M35.3 Polymyalgia rheumatica (principal) ==

== ENCOUNTER → 2023-09-03 | Outpatient (CLI) | payer BC ==
[2023-09-03 12:39] LABS: BASO # 0.1 10^3/uL (0.0-0.2); BASO % 0.7 % (0.0-1.0); EOS # 0.2 10^3/uL (0.0-0.5); EOS % 1.7 % (0.0-3.0); HEMATOCRIT 38.8 % (36.0-47.0); HEMOGLOBIN 12.4 g/dl (12.0-15.5); LYMPH # 1.9 10^3/uL (1.5-5.0); LYMPH % 15.3 % (24.0-44.0); MEAN CORPUSCULAR HEMOGLOBIN 28.7 pg (27.0-33.0); MEAN CORPUSCULAR VOLUME 89.8 fl (80.0-96.0); MONO # 0.9 10^3/uL (0.0-0.8); MONO % 7.1 % (2.0-8.0); NEUTROPHILS # 9.1 10^3/uL (1.5-8.5); NEUTROPHILS % 74.2 % (36.0-66.0); PLATELET COUNT, AUTOMATED 360 10^3/uL (150-450); RED BLOOD COUNT 4.32 10^6/uL (4.00-5.40); WHITE BLOOD COUNT 12.2 10^3/uL (4.0-10.0)
[2023-09-03 13:02] LABS: ALBUMIN 3.5 G/DL (3.2-5.2); CALCIUM LEVEL 9.3 MG/DL (8.5-10.1); CHOLESTEROL RISK RATIO 3.15 (<5); HDL CHOLESTEROL 48.5 MG/DL (>40); LDL CHOLESTEROL 70.7 MG/DL (<100); NON-HDL-C 104.5 MG/DL
[2023-09-03 13:03] LABS: PERCENT SATURATION 20.8 % (13.2-45.0)
[2023-09-03 13:04] LABS: FERRITIN 120.4 NG/ML (7.3-270.7); THYROID STIMULATING HORMONE 2.568 uIU/ML (0.55-4.78); TOTAL 25(OH) VITAMIN D 14.9 NG/ML (20.0-100.0)
[2023-09-03 13:05] LABS: FOLATE 9.92 NG/ML (>5.4); FREE T4 1.03 NG/DL (0.89-1.76)
== END ==
LOC: M WUC 08:32
PROVIDERS: ATTEND Family Medicine
DX: E55.9 Vitamin D deficiency, unspecified (principal); D64.9 Anemia, unspecified; E66.9 Obesity, unspecified

== ENCOUNTER → 2023-11-06 | Outpatient (CLI) | payer BC ==
[2023-11-06 09:45] LABS: APPEARANCE, URINE HAZY (CLEAR); BACTERIA, URINE AUTO NEGATIVE (NEGATIVE); BILIRUBIN, URINE AUTO NEGATIVE (NEGATIVE); BLOOD, URINE BLOOD NEGATIVE (NEGATIVE); COLOR, URINE YELLOW (YELLOW); GLUCOSE, URINE (UA) AUTO NEGATIVE (NEGATIVE); KETONE, URINE AUTO NEGATIVE (NEGATIVE); LEUKOCYTE ESTERASE, URINE AUTO 2+ (NEGATIVE); NITRITE, URINE AUTO NEGATIVE (NEGATIVE); PROTEIN, URINE AUTO NEGATIVE (NEGATIVE); RBC, URINE AUTO 1 /HPF (0-3); SPECIFIC GRAVITY URINE AUTO 1.018 (1.002-1.035); SQUAMOUS EPITHELIAL CELL UR AU 3 /HPF (0-6); UROBILINOGEN, URINE AUTO 0.2 mg/dL (0.0-2.0); WBC, URINE AUTO 2 /HPF (0-3)
[2023-11-06 10:14] LABS: CREATININE, URINE 149.4 MG/DL; MALB URINE SIEMENS < 3.0 MG/L
== END ==
LOC: M WUC 08:42
PROVIDERS: ATTEND Family Medicine
DX: N20.0 Calculus of kidney (principal); I10 Essential (primary) hypertension

== ENCOUNTER → 2024-01-11 | Outpatient (CLI) | payer BC ==
[~2024-01-11] MED LIST changes: +ESTRADIOL; +LISI20TA33; +PHEN15CA6; +PRED5TA; +TOPI25TA10
== END ==
LOC: M PLAIMG 07:23
PROVIDERS: ATTEND Internal Medicine Rheumatology
DX: M35.3 Polymyalgia rheumatica (principal)

== ENCOUNTER → 2024-04-15 | Outpatient (CLI) | payer BC, MEDICAID ==
[2024-04-15 17:29] LABS: BASO # 0.1 10^3/uL (0.0-0.2); BASO % 0.6 % (0.0-1.0); EOS # 0.2 10^3/uL (0.0-0.5); EOS % 0.9 % (0.0-3.0); HEMATOCRIT 40.7 % (36.0-47.0); HEMOGLOBIN 12.7 g/dl (12.0-15.5); LYMPH # 1.7 10^3/uL (1.5-5.0); LYMPH % 10.3 % (24.0-44.0); MEAN CORPUSCULAR HEMOGLOBIN 28.7 pg (27.0-33.0); MEAN CORPUSCULAR HGB CONC 31.2 g/dl (32.0-36.5); MEAN CORPUSCULAR VOLUME 92.1 fl (80.0-96.0); MONO # 1.2 10^3/uL (0.0-0.8); MONO % 7.2 % (2.0-8.0); NEUTROPHILS % 80.3 % (36.0-66.0); PLATELET COUNT, AUTOMATED 424 10^3/uL (150-450); RED BLOOD COUNT 4.42 10^6/uL (4.00-5.40); WHITE BLOOD COUNT 16.2 10^3/uL (4.0-10.0)
[2024-04-15 17:35] LABS: ERYTHROCYTE SEDIMENTATION RATE 63 mm/hr (0-30)
[2024-04-15 17:59] LABS: ALBUMIN 3.6 G/DL (3.2-5.2); ALKALINE PHOSPHATASE 91 U/L (35-104); ALT/SGPT 16 U/L (7.0-40); AST/SGOT 10 U/L (<34); BILIRUBIN,TOTAL 0.4 MG/DL (0.3-1.2); BLOOD UREA NITROGEN 19 MG/DL (9-23); C REACTIVE PROTEIN QUANTITATIV 2.34 MG/DL (<1.0); CALCIUM LEVEL 9.8 MG/DL (8.5-10.1); CARBON DIOXIDE LEVEL 22 MMOL/L (20-31); CHLORIDE LEVEL 106 MMOL/L (98-107); CREATININE FOR GFR 0.72 MG/DL (0.55-1.30); GLOMERULAR FILTRATION RATE > 60.0 (>51); GLUCOSE, FASTING 89 MG/DL (60-100); POTASSIUM SERUM 4.5 MMOL/L (3.5-5.1); SODIUM LEVEL 139 MMOL/L (136-145); TOTAL PROTEIN 7.7 G/DL (5.7-8.2)
== END ==
LOC: M WUC 13:35
PROVIDERS: ATTEND Internal Medicine Rheumatology
DX: M35.3 Polymyalgia rheumatica (principal); R76.8 Other specified abnormal immunological findings in serum; H04.123 Dry eye syndrome of bilateral lacrimal glands; R06.02 Shortness of breath

== ENCOUNTER → 2024-04-26 | Outpatient (CLI) | payer MEDICAID ==
[2024-04-26 15:48] LABS: BASO # 0.1 10^3/uL (0.0-0.2); BASO % 0.6 % (0.0-1.0); EOS # 0.2 10^3/uL (0.0-0.5); EOS % 1.8 % (0.0-3.0); HEMATOCRIT 42.3 % (36.0-47.0); HEMOGLOBIN 13.2 g/dl (12.0-15.5); LYMPH # 1.9 10^3/uL (1.5-5.0); LYMPH % 16.5 % (24.0-44.0); MEAN CORPUSCULAR HEMOGLOBIN 28.9 pg (27.0-33.0); MEAN CORPUSCULAR HGB CONC 31.2 g/dl (32.0-36.5); MEAN CORPUSCULAR VOLUME 92.6 fl (80.0-96.0); MONO # 0.8 10^3/uL (0.0-0.8); MONO % 6.8 % (2.0-8.0); NEUTROPHILS # 8.6 10^3/uL (1.5-8.5); NEUTROPHILS % 73.6 % (36.0-66.0); PLATELET COUNT, AUTOMATED 431 10^3/uL (150-450); RED BLOOD COUNT 4.57 10^6/uL (4.00-5.40); WHITE BLOOD COUNT 11.7 10^3/uL (4.0-10.0)
[2024-04-26 16:18] LABS: ALBUMIN 3.8 G/DL (3.2-5.2); ALKALINE PHOSPHATASE 80 U/L (35-104); ALT/SGPT 21 U/L (7.0-40); AST/SGOT 18 U/L (<34); BILIRUBIN,TOTAL 0.5 MG/DL (0.3-1.2); BLOOD UREA NITROGEN 16 MG/DL (9-23); CALCIUM LEVEL 9.4 MG/DL (8.5-10.1); CARBON DIOXIDE LEVEL 25 MMOL/L (20-31); CHLORIDE LEVEL 105 MMOL/L (98-107); CHOLESTEROL LEVEL 163 MG/DL (<200); CHOLESTEROL RISK RATIO 2.84 (<5); CREATININE FOR GFR 0.75 MG/DL (0.55-1.30); GLOMERULAR FILTRATION RATE > 60.0 (>51); GLUCOSE, FASTING 96 MG/DL (60-100); HDL CHOLESTEROL 57.2 MG/DL (>40); LDL CHOLESTEROL 70.2 MG/DL (<100); NON-HDL-C 105.8 MG/DL; POTASSIUM SERUM 4.4 MMOL/L (3.5-5.1); SODIUM LEVEL 139 MMOL/L (136-145); TOTAL PROTEIN 7.9 G/DL (5.7-8.2); TRIGLYCERIDES LEVEL 178 MG/DL (<150)
[2024-04-26 16:21] LABS: FREE T4 1.09 NG/DL (0.89-1.76); TOTAL 25(OH) VITAMIN D 9.3 NG/ML (20.0-100.0)
[2024-04-26 16:22] LABS: THYROID STIMULATING HORMONE 2.037 uIU/ML (0.55-4.78)
[2024-04-26 16:26] LABS: URIC ACID 6.9 MG/DL (3.1-7.8)
[2024-04-26 17:47] LABS: HEMOGLOBIN A1c 5.1 % (4.0-6.0)
== END ==
LOC: M WUC 09:07
PROVIDERS: ATTEND Family Medicine
DX: M89.9 Disorder of bone, unspecified (principal)

== ENCOUNTER → 2024-09-21 | Outpatient (CLI) | payer OTHER ==
[~2024-09-21] MED LIST changes: +PRED-1142 PO; -PRED1TABL PO; +TOPI-256; -TOPI25TA10
[2024-09-21 18:53] LABS: ALT/SGPT 23 U/L (7.0-40); AST/SGOT 19 U/L (<34); CALCIUM LEVEL 9.6 MG/DL (8.3-10.6); CARBON DIOXIDE LEVEL 25 MMOL/L (20-31); CHLORIDE LEVEL 104 MMOL/L (98-107); CHOLESTEROL LEVEL 170 MG/DL (<200); CHOLESTEROL RISK RATIO 2.68 (<5); CREATININE FOR GFR 0.73 MG/DL (0.55-1.30); FREE T4 1.00 NG/DL (0.89-1.76); GLOMERULAR FILTRATION RATE > 90.0 (>45); LDL CHOLESTEROL 80.3 MG/DL (<100); NON-HDL-C 106.7 MG/DL; POTASSIUM SERUM 4.1 MMOL/L (3.5-5.1); PROLACTIN 13.65 NG/ML; SODIUM LEVEL 142 MMOL/L (136-145); TRIGLYCERIDES LEVEL 132 MG/DL (<150)
[2024-09-21 19:00] LABS: BASO # 0.1 10^3/uL (0.0-0.2); BASO % 0.7 % (0.0-1.0); EOS # 0.3 10^3/uL (0.0-0.5); EOS % 2.2 % (0.0-3.0); LYMPH # 1.7 10^3/uL (1.5-5.0); LYMPH % 15.2 % (24.0-44.0); MONO # 1.0 10^3/uL (0.0-0.8); MONO % 8.8 % (2.0-8.0); NEUTROPHILS # 8.1 10^3/uL (1.5-8.5); NEUTROPHILS % 72.5 % (36.0-66.0); PLATELET COUNT, AUTOMATED 397 10^3/uL (150-450)
== END ==
LOC: M WUC 15:09
PROVIDERS: ATTEND Family Medicine
DX: E78.2 Mixed hyperlipidemia (principal); E79.0 Hyperuricemia without signs of inflammatory arthritis and tophaceous disease; R53.82 Chronic fatigue, unspecified; D35.2 Benign neoplasm of pituitary gland; E66.9 Obesity, unspecified

== ENCOUNTER → 2024-12-12 | Outpatient (CLI) | payer OTHER ==
[2024-12-12 12:52] LABS: RHEUMATOID FACTOR QUANT 5.3 IU/ML (<14)
[2024-12-12 12:53] LABS: VITAMIN B12 LEVEL 609.0 PG/ML (211-911)
[2024-12-12 13:26] LABS: ESTIMATED AVERAGE GLUCOSE 108.0 MG/DL (60-110)
[2024-12-13 08:42] LABS: T P ELECTROPHORESIS SO 7.3 g/dL (6.1-8.1)
[2024-12-13 13:57] LABS: SSA SJOGRENS A <1.0 NEG AI (<1.0 NEG); SSB SJOGRENS B <1.0 NEG AI (<1.0 NEG)
[2024-12-13 14:22] LABS: PROTEIN CREATININE RATIO 66 mg/g creat (24-184); T PROTEIN CREATININE RATIO 0.066 (0.024-0.184); UPEP CREATININE 121 mg/dL (20-275); UPEP TOTAL PROTEIN 8 mg/dL (5-24)
[2024-12-14 06:37] LABS: ALBUMIN SPEP 3.9 g/dL (3.8-4.8); ALPHA-1-GLOBULINS SO 0.3 g/dL (0.2-0.3); ALPHA-2-GLOBULINS SO 0.8 g/dL (0.5-0.9); BETA 2 GLOBULIN 0.4 g/dL (0.2-0.5); BETA-GLOBULIN SO 0.4 g/dL (0.4-0.6); GAMMA GLOBULINS SO 1.4 g/dL (0.8-1.7)
[2024-12-14 08:37] LABS: UPEP ALBUMIN 29 %; URINE ALPHA 1 GLOBULIN 11 %; URINE ALPHA 2 GLOBULIN 29 %; URINE BETA GLOBULIN 18 %; URINE GAMMA GLOBULIN 14 %
[2024-12-14 17:35] LABS: VITAMIN E(ALPHA TOCOPHEROL) 13.2 mg/L (5.7-19.9); VITAMIN E(GAMMA TOCOPHEROL) 1.2 mg/L (<=4.3)
== END ==
LOC: M WUC 09:39
PROVIDERS: ATTEND Psychiatry & Neurology Neurology
DX: E11.9 Type 2 diabetes mellitus without complications (principal); E07.9 Disorder of thyroid, unspecified; E53.8 Deficiency of other specified B group vitamins; M35.00 Sjogren syndrome, unspecified